=== PATIENT | female | born 1940 | race Caucasian/White ===

== ENCOUNTER → 2016-05-12 14:51 | Outpatient (CLI) | payer MEDICARE ==
[2015-08-02 13:22] VITALS: BMI 31.9
[~2016-05-12 14:51] MED LIST: AMBIEN10 MG PO; ATIVAN0.5 MG PO; BAYER CHEWABLE81 MG PO; BENADRYL25 MG PO; CELEXA40 MG PO; COLACE100 MG PO; FLOMAX0.4 MG PO; GLUCOPHAGE1000 MG PO; HUMALOG 30100 UNITS/ SC; HYDROCODON-ACE1 EAC7 PO; LANTUS INSULIN10 ML SC; LOVENOX40 MG/0.4 SC; NAPROSYN500 MG PO; NAPROXEN250 MG PO; NORCO 7.5/325 T1 TA1 PO; ROBAXIN-750750 MG PO; TENORMIN50 MG PO; VITAMIN B-1000 MCG/M IM; ZESTRIL40 MG PO; ZOFRAN4 MG PO
== END | disposition home or self-care (01) ==
LOC: D.CT 14:51
DX: M48.06 Spinal stenosis, lumbar region (principal); M51.36 Other intervertebral disc degeneration, lumbar region

== ENCOUNTER 2016-06-07 05:14 | Inpatient (IN) | payer MEDICARE ==
[2016-06-05 16:19] LABS: BASOPHILS 0.2 % (0.0-2.0); EOSINOPHILS 2.5 % (0-7); HEMATOCRIT 34.9 % (36.0-48.0); HEMOGLOBIN 11.4 g/dL (12-16); IMMATURE GRANULOCYTES 0.2 % (0-5); LYMPHOCYTES 28.7 % (15-50); MCH 31.8 pg (26.0-34.0); MCHC 32.7 g/dL (31.0-37.0); MCV 97.5 fL (80.0-100.0); MEAN PLATELET VOLUME 9.9 fL (7.4-10.4); MONOCYTES 6.2 % (2-11); NEUTROPHILS 62.2 % (40-80); RBC 3.58 10x6/uL (4.00-5.40); RDW 12.8 % (11.5-14.5); WBC 8.1 10x3/uL (4.8-10.8)
[2016-06-05 16:30] LABS: PLATELET COUNT 342 10x3/uL (130-400)
[2016-06-05 16:37] LABS: ANION GAP 11.9 mmol/L (8-16); CALCIUM 9.3 mg/dL (8.5-10.1); CREATININE - SERUM 1.1 mg/dL (0.6-1.3); POTASSIUM - SERUM 4.9 mmol/L (3.5-5.1)
[2016-06-05 16:50] LABS: INR 1.01 (0.85-1.17); PROTIME 13.1 SECONDS (11.6-15.0)
[2016-06-05 17:17] LABS: APPEARANCE CLEAR (CLEAR); BILIRUBIN NEGATIVE (NEGATIVE); COLOR STRAW (YELLOW); GLUCOSE NEGATIVE (NEGATIVE); KETONE NEGATIVE (NEGATIVE); NITRITE NEGATIVE (NEGATIVE); PROTEIN NEGATIVE (NEGATIVE); UROBILINOGEN NORMAL (NORMAL)
[2016-06-05 17:18] LABS: BACTERIA MODERATE /hpf (NONE SEEN); EPITHELIAL CELLS 0-5 /hpf (0-5); LEUKOCYTE ESTERASE 1+ (NEGATIVE); RED CELLS - URINE OCC /hpf (0-5)
[2016-06-07] VITALS (9 sets, daily range): BP systolic 132–170; BP diastolic 56–94; Ht 160 cm; Wt 75.0 kg
[~2016-06-07] VITALS: Ht 160 cm; Wt 75.0 kg
[~2016-06-07 05:14] MED LIST changes: -BENADRYL25 MG PO; -COLACE100 MG PO; -FLOMAX0.4 MG PO; -HUMALOG 30100 UNITS/ SC; -LOVENOX40 MG/0.4 SC; -NAPROXEN250 MG PO; -NORCO 7.5/325 T1 TA1 PO; -ROBAXIN-750750 MG PO; -ZOFRAN4 MG PO
[2016-06-07] MEDS ORDERED: BENADRYL25 MG PO (05:49)
[2016-06-07] MEDS ORDERED: NORCO 7.5/325 T1 TA1 PO (05:50)
[2016-06-07] MEDS ORDERED: NAPROXEN250 MG PO (05:54)
[2016-06-07] MEDS ORDERED: COLACE100 MG PO (06:21)
--- NOTE | 2016-06-07 06:37 | NUR ---
0605 CALLED MARCUS YANG ABOUT UA RESULTS, NO NEW ORDERS NOTED
--- NOTE | 2016-06-07 08:29 | NUR ---
PILLOWS UNDER PTS LOWER LEGS AND FEET
--- NOTE | 2016-06-07 11:50 | HP ---
PATIENT: JOSE PLATA MEDICAL RECORD: [id number] ACCOUNT: [id number] LOCATION:[facility]- : 39 ADMISSION DATE: 06/07/16 HISTORY AND PHYSICAL EXAMINATION CHIEF COMPLAINT: Back pain. HISTORY OF PRESENT ILLNESS: This is a pleasant 75-year-old white female who presented to our office with low back pain, radicular into her right hip. She rates her pain 7/10. Most of the time, she described as sharp. She has pain with walking. It is better slightly after LESI, but still requires an assistive device for ambulation. She sustained a fall last week after her MRI and CT, so a repeat CT is being done today prior to surgery. PAST MEDICAL HISTORY: Significant for diabetes and high blood pressure. PAST SURGICAL HISTORY: A total hysterectomy 1979, gastric stapling 1985, left shoulder arthroscopy, rotator cuff repair in 1985 and a right shoulder surgery. FAMILY HISTORY: Significant for her dad dying at the age of 90 from COPD complications. Her mom at the age of 90 with respiratory failure. SOCIAL HISTORY: She is . She denies any alcohol or tobacco use. FAMILY DOCTOR: Dr. Louise Lange, Dr. Rowan, her orthopedic surgeon. MRI was at [place]. ALLERGIES: None. CURRENT MEDICATIONS: Atenolol, Ativan, lisinopril, Lantus insulin, Ambien, aspirin, and again allergies are none. REVIEW OF SYSTEMS: She denies any recent chest pain, shortness of breath or weight changes. PHYSICAL EXAMINATION: HEENT: She is normocephalic. Pupils are equal, reactive to light. CHEST: Clear bilaterally, left auscultation. HEART: S1 and S2. ABDOMEN: Soft. EXTREMITIES: Her right biceps femoris strength is 4/5. Walks with a cane with slight limp, decreased range of motion of back. 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 PLAN: L2 through 4 XLIF and that is L2-3, L3-4 XLIF. The risk and benefits of surgery have been explained to her in detail. Risks include bleeding, failure to relieve symptoms, problems with anesthesia and . Time was allowed for questions, questions were answered. The patient wishes to proceed with surgery. TRANSINT:[id number] Voice Confirmation ID: [id number] DOCUMENT ID: [id number] HISTORY AND PHYSICAL [id number] JOSE PLATA Dictated By: MARCUS YANG I have interviewed/examined the above patient and agree with these documented findings. JONES JULIAN MD at 1150 CC: [id number] DICTATION DATE: 06/05/16 1632 COMSEC MANAGER: 06/05/[id number] ADM IN [place] [id number] [place] [id number]
--- NOTE | 2016-06-07 13:45 | NUR ---
PATIENT IN BED WITH IV INTACT. NO COMPLAINTS. DRAIN INTACT. INCISION TO BACK CDI. VS STABLE. FAMILY AT BEDSIDE. CALL LIGHT WITHIN REACH.
--- NOTE | 2016-06-07 15:36 | OP ---
PATIENT NAME: EWA PLATA MEDICAL RECORD: [id number] :38 LOCATION:[id number] ADMISSION DATE:06/07/16 SURGEON: JONES JULIAN MD DATE OF OPERATION: 06/07/2016 PREOPERATIVE DIAGNOSIS: Right L3, L4 radiculopathy. POSTOPERATIVE DIAGNOSIS: Right L3, L4 radiculopathy. PROCEDURES PERFORMED: 1. Application of intervertebral biomechanical device via posterior interbody approach with NuVasive MAS PLIF interbodies at L2-L3, L3-L4. 2. Posterior interbody arthrodesis at L2-L3, L3-L4 3. Posterior segmental instrumentation in the form of cortical screw fixation at L2, L3 and L4 bilaterally. 4. Posterolateral arthrodesis at left L2-L3, L3-L4 facet joints. 5. Wide laminectomy with medial facetectomy on the right side at L2, L3. 6. Repair of intraoperative durotomy. ESTIMATED BLOOD LOSS: 300 mL. SPECIMENS: None. FINDINGS: Durotomy noted underneath the L4 laminotomy closed primarily; no EMG response at greater than 40 milliamps at any of the screws after screw placement, COMPLICATIONS: None apparent. HISTORY OF PRESENT ILLNESS: Ms. Ewa Plata is a pleasant 75-year-old female, who presented with intractable severe left lower extremity and right lower extremity pain. She suffered a fall approximately a week before surgery and noticed the onset of left groin pain. Her longer standing pain is proximal posterolateral right-sided pain in the L3 and L4 nerve root distributions. Imaging was consistent with a foraminal stenosis at these levels and a bulging disc as well as severe degenerative disc disease with modic changes. I had an extensive discussion with her at multiple visits preoperatively regarding her presentation, history, imaging findings, neurologic exam and the risks, benefits and options for continued conservative therapy versus operative intervention in the form of either posterior or combined posterior and lateral approach. She ultimately chose undergo operative intervention and on the morning of surgery, I did finalize the plan for posterior only approach as described here. I discussed with her directly preoperatively and she understood and agreed and consent was modified to reflect this. Again, all risks and benefits of procedure were discussed with her preoperatively and her questions were answered. DESCRIPTION OF PROCEDURE: Ms. Plata was identified by anesthesia team transferred to operative theater where general endotracheal anesthesia commenced and all appropriate lines and tubes were placed. She was gently transferred over in the prone position on the operative table. All pressure points were padded. Arms were placed in superman position. Chest was placed on chest bolsters and eyes were accounted for by anesthesia team. Lumbar region was prepped and draped in usual sterile fashion. A timeout was performed and agreed OPERATIVE REPORT [id number] EWA PLATA to by those present. The patient did receive IV Ancef and 10 mg IV dexamethasone during the procedure. Ancef was given preoperatively and dexamethasone was given approximately long-term through the procedure. Using AP fluoroscopy, the midline incision was marked and infiltrated with 1% lidocaine with epinephrine. A #10 blade was used to make the skin incision and using Bovie electrocautery, standard midline posterior approach was undertaken and relevant anatomy at L2, L3 and superior part of L4 were exposed and identified. Self-retaining retractors were laid into place. The entry points for cortical screws at L2, L3 and L4 bilaterally were identified and drilled under initially AP fluoroscopy and then with the drill guide set at 35 mm. Under lateral fluoroscopy, the tracts were deepened. There was subsequently tapped with 5.0 mm tap. The screws were placed with continuous EMG neuro stimulation and no nerve root responses occurred at greater than 40 milliamps of stimulation. Screws placed were 5.5 x 40 mm screws at L2, 5.0 x 40 mm screws at L3 and L4 bilaterally. Using combination of osteotomes, Kerrison rongeurs, high speed matchstick drill and pituitaries, the L2 and L3 wide laminectomies and right medial facetectomies were performed. The ligamentum flavum was resected and the decompression was carried out of the L2, L3 and L4 nerve roots. The thecal sac was retracted over the L2-L3 disc space and bipolar electrocautery was judiciously used to control epidural bleeding. A square cut was made in the disc with a 15 blade and pituitary rongeurs were used for initial discectomy. Using a combination of kay, pituitary rongeurs, the discectomy was carried out. An 8 mm x 28 mm MAS PLIF interbody size was found to be appropriate on the trial and MAS PLIF interbody device was inserted without difficulty. This occurred after the autograft, which had been harvested from the laminectomy and cleaned of soft tissue and morcellized with the automated bone mill was implanted in the disc space with a bone funnel. The cage was also packed with autograft. The endplates were prepared for arthrodesis with ring curettes and endplate raspers prior to placement of the interbody cage. The process was repeated at L3-L4 with the endplate again prepared in the same manner with ring curette and the rasper. The same sized cage, which was a MAS PLIF interbody cage was placed at L3-L4. After cage placement, it was noted that durotomy had formed slightly inferior to the disc space in the dorsal aspect of the thecal sac. Copious amount of irrigation was used throughout the field. Approximately 1500 mL of irrigation was used throughout the procedure. The laminectomy was extended inferiorly enough to expose the underlying durotomy. Using 4-0 Nurolon sutures, the durotomy was closed primarily and 3 separate Valsalva maneuvers up to 40 cm of water pressure were tested and no leakage was identified. The left L2-L3 and left L3-L4 facet joints were drilled away with a matchstick drill and curetted free of soft tissue with curettes and then packed with autograft. The screw heads were placed on the screws and the 80 mm rods were laid into place and final tightened without incident with set screws. Final AP and lateral x-ray confirmed appropriate position of the implants. A small piece of muscle measuring approximately 1 cm x 1 cm was cut away and laid over the durotomy site. The skin incision was extended rostrally and caudally approximately 1 cm in each direction for better exposure of the fascial plane. A 10-Syrian round drain was tunneled away superiorly in a subfascial manner away from the incision and laid into place in the epidural space. Using interrupted 0 Vicryl sutures, the fascia was closed in a watertight fashion and probed multiple times to ensure no defects. Prior to closure of the fascia, approximately half a gram of vancomycin powder was sprinkled in the subfascial space. The other half gram was sprinkled in the suprafascial space and subdermal layer was closed with inverted interrupted 2-0 Vicryl sutures and the skin was closed with joel. The drain was sutured into place with Vicryl sutures and connected ____ bag to drain to gravity. Sponge and needle counts were correct times 2 at the end the OPERATIVE REPORT [id number] EWA PLATA case. There were no apparent complications. I discussed with the family regarding the course of procedure immediately afterwards and answered all their questions. TRANSINT:[id number] Voice Confirmation ID: [id number] DOCUMENT ID: [id number] JONES JULIAN MD at 1536 CC: [id number] DICTATION DATE: 06/07/16 1213 MUSIC ADAPTER: 06/07/16 1512 ADM IN [place] [id number] [place] [address]
--- NOTE | 2016-06-07 18:30 | NUR ---
PATIENT BP INCREASING WELL HR. 130 AND 190/99. GAVE PATIENT ATENOLOL AND PAGED DR. FULLER.
--- NOTE | 2016-06-07 19:13 | NUR ---
PAGED DR. FULLER FOR PATIENT BP AND HR TRENDING UP TO 190'S/ 90 AND 130'S GAVE PATIENT HER ATENOLOL. NEW ORDERS RECIEVED AND CARRIED OUT.
--- NOTE | 2016-06-07 20:03 | NUR ---
PATIENT RESTING IN BED WITH X-RAY TECHS AT BEDSIDE. PATIENT DENIES NEEDS AT THIS TIME. BED IN LOWEST POSITION, CALL LIGHT WITHIN REACH, AND BED ALARM ON. ENCOURAGED PATIENT TO CALL IF SHE HAS NEEDS.
--- NOTE | 2016-06-07 22:23 | NUR ---
ADMINISTERED APRESOLINE FOR BP 196/103.
--- NOTE | 2016-06-07 23:44 | NUR ---
ADMINISTERED APRESOLINE FOR BP 164/93
[2016-06-08] VITALS: BP 166/81
[2016-06-08 03:00] VITALS: BP 141/70
[2016-06-08 05:36] LABS: BASOPHILS 0.1 % (0.0-2.0); EOSINOPHILS 0 % (0-7); HEMATOCRIT 27.9 % (36.0-48.0); HEMOGLOBIN 8.8 g/dL (12-16); IMMATURE GRANULOCYTES 0.4 % (0-5); LYMPHOCYTES 6.7 % (15-50); MCH 30.9 pg (26.0-34.0); MCHC 31.5 g/dL (31.0-37.0); MCV 97.9 fL (80.0-100.0); MEAN PLATELET VOLUME 10.2 fL (7.4-10.4); MONOCYTES 7.1 % (2-11); NEUTROPHILS 85.7 % (40-80); PLATELET COUNT 347 10x3/uL (130-400); RBC 2.85 10x6/uL (4.00-5.40); RDW 12.7 % (11.5-14.5); WBC 13.6 10x3/uL (4.8-10.8)
--- NOTE | 2016-06-08 07:15 | NUR ---
PATIENT RECEIVED ALERT IN BED. RESPIRATIONS EVEN AND UNLABORED. FAMILY AT BEDSIDE. DENIES NEEDS. SIDE RAILS UP X2. BED IN LOW POSITION. CALL LIGHT AND EXTERMINATION SUPERVISOR BUTTON IN REACH.
[2016-06-08 07:46] VITALS: BP 126/59
--- NOTE | 2016-06-08 08:18 | NUR ---
PATIENT ALERT IN BED EATING BREAKFAST. TOLERATING WELL. SCHEDULED MEDICATION ADMINISTERED. SIDE RAILS UP X2. BED IN LOW POSITION. CALL LIGHT AND RAWHIDE BONE ROLLER BUTTON IN REACH.
[2016-06-08 09:42] LABS: APPEARANCE CLEAR (CLEAR); COLOR YELLOW (YELLOW)
[2016-06-08 09:43] LABS: BACTERIA FEW /hpf (NONE SEEN); BILIRUBIN NEGATIVE (NEGATIVE); EPITHELIAL CELLS OCC /hpf (0-5); GLUCOSE 1000 mg/dL (NEGATIVE); KETONE NEGATIVE (NEGATIVE); LEUKOCYTE ESTERASE TRACE (NEGATIVE); MUCUS >1+ /lpf (NONE SEEN); NITRITE NEGATIVE (NEGATIVE); PROTEIN TRACE mg/dL (NEGATIVE); RED CELLS - URINE 0-5 /hpf (0-5); UROBILINOGEN NORMAL (NORMAL); WHITE CELLS - URINE 0-5 /hpf (0-5)
--- NOTE | 2016-06-08 11:35 | NUR ---
SITTING UP IN CHAIR AT BEDSIDE. RESTING QUIETLY WITH EYES CLOSED. RESPIRATIONS EVEN AND UNLABORED. WAKES EASY WHEN SPOKE TO, BUT IMMEDIATELY DRIFTS BACK TO SLEEP. FAMILY AT BEDSIDE. ACCU CHECK 218. INSULIN PER SLIDING SCALE. CALL LIGHT IN REACH.
[2016-06-08 12:12] VITALS: BP 146/63
--- NOTE | 2016-06-08 12:55 | NUR ---
PATIENT SITTING UP IN CHAIR AT BEDSIDE. PT AND FAMILY PRESENT. CALL LIGHT IN REACH.
--- NOTE | 2016-06-08 13:50 | NUR ---
[facility] CARE PROVIDED. [facility] CATH D/C WITH TIP INTACT. APPROXIMATELY 450CC URINE REMAINED IN COLLECTION BAG. WELL TOLERATED. WILL CONTINUE TO MONITOR OUTPUT.
--- NOTE | 2016-06-08 14:56 | NUR ---
Patient Name: JOSE PLATA Admission Status: Elective Accout number: [id number] Admission Date: 06-07-2016 : 1940 Admission Diagnosis: Attending: BRUNO Current LOS: 1 Anticipated DC Date: 06-12-2016 Planned Disposition: Inpatient Rehab Primary Insurance: MEDICARE A & B Discharge Planning Comments: CM MET WITH PATIENT AND DAUGHTER (JOE) REGARDING D/C NEEDS AND PLANS. PATIENT LIVES ALONE AND DAUGHTER WILL DRIVE HER AT DISCHARGE. PATIENT HAS A RAMP TO ENTER HOME AND NO STAIRS INSIDE. PATIENT HAS HELP WITH HER SHOWER, DRESSING, MEDS, AND HAS A GLUCOMETER BUT DOES NOT CHECK BLOOD SUGAR OFTEN. PATIENTS PCP IS DR. RASMUSSEN AND PHARMACY IS [facility]. PATIENT HAS NOT HAD HOME HEALTH AND WOULD LIKE TO HAVE IP REHAB. CM WILL CONTINUE TO FOLLOW PATIENT WITH D/C NEEDS AND PLANS. PCP DR. RASMUSSEN [facility]- [phone] JOE (DAUGHTER) [phone] E D Tech: Tanvi Schmid Is the patient Alert and Oriented? Yes 0 * How many steps to enter\exit or inside your home? RAMP 0 * PCP DR. RASMUSSEN 0 * Pharmacy [facility] 0 * Preadmission Environment Home Alone 0 * ADLs Partial Dependent 0 * Partial ADLs (Assistance needed) Bathing Dressing Medication Management Toileting Transfers 0 * Equipment Cane Elevated Toliet Seat Glucometer Walker Wheelchair 0 * Other Equipment SHOWER BENCH W/BARS 0 * List name and contact numbers for known caregivers / representatives who currently or will assist patient after discharge: JOE (DAUGHTER) [phone] 0 * Community resources currently utilized None 0 * Additional services required to return to the preadmission environment? Yes 0 * Can the patient safely return to the preadmission environment? Yes 0 * Has this patient been hospitalized within the prior 30 days at any hospital? No 0 Grand Total: 0
--- NOTE | 2016-06-08 16:12 | NUR ---
Rehab Prescreening Consult recieved and the patient was visited. The patient was sleeping, but her daughter was at the bedside. She meets criteria for inpatient rehab and has agreed to participate in the program. She will be accepted when the physician feels she is medically stable for discharge to rehab. The [facility] has been made aware. Nkechi Friend RN Clinical Liaison, Rehab
[2016-06-08 16:29] VITALS: BP 111/52
--- NOTE | 2016-06-08 17:40 | NUR ---
ALERT IN BED EATING DINNER WITH ASSIST FROM DAUGHTER. TOLERATING WELL. SCHEDULED MEDICATION ADMINISTERED. ACCU CHECK 196. INSULIN PER SLIDING SCALE. SIDE RAILS UP X2. BED IN LOW POSITION. CALL LIGHT IN REACH.
--- NOTE | 2016-06-08 19:30 | NUR ---
RESTING WITH EYES CLOSED, EASILY AROUSED, ASSESSMENT COMPLETED, NO ACUTE DISTRESS NOTED, DENIES NEEDS, FALL PRECAUTIONS IN PLACE, CL IN REACH, WILL MONITOR
[2016-06-08 20:00] VITALS: BP 106/50
--- NOTE | 2016-06-08 21:19 | NUR ---
MEDS GIVEN PER MAR, JORDYN WELL, DIABETIC SNACK PROVIDED, DENIES FURTHER NEEDS, FALL PRECAUTIONS IN PLACE, DTR AT BEDSIDE, CL IN REACH
[2016-06-09] VITALS (19 sets, daily range): BP systolic 92–156; BP diastolic 44–73
--- NOTE | 2016-06-09 00:03 | NUR ---
6 UNITS INSULIN GIVEN PER SLIDING SCALE FOR BS OF 294
--- NOTE | 2016-06-09 01:00 | NUR ---
PT UNABLE TO VOID, DENIES PRESSURE OR DISCOMFORT, IN AND OUT CATH DONE WITH 300CC CLEAR YELLOW URINE OBTAINED USING CONTRACT TECHNICAL WRITER, JORDYN WELL, DTR IN ROOM, CL IN REACH
--- NOTE | 2016-06-09 05:48 | NUR ---
4 UNITS INSULIN GIVEN PER SLIDING SCALE FOR BS OF 233 ALONG WITH ZOFRAN FOR C/O NAUSEA, JORDYN WELL, DTR IN ROOM, CL IN REACH
[2016-06-09 06:15] LABS: BASOPHILS 0.1 % (0.0-2.0); EOSINOPHILS 0.1 % (0-7); HEMATOCRIT 24.2 % (36.0-48.0); HEMOGLOBIN 7.8 g/dL (12-16); IMMATURE GRANULOCYTES 0.3 % (0-5); LYMPHOCYTES 11.6 % (15-50); MCH 31.6 pg (26.0-34.0); MCHC 32.2 g/dL (31.0-37.0); MEAN PLATELET VOLUME 10.3 fL (7.4-10.4); MONOCYTES 7.8 % (2-11); NEUTROPHILS 80.1 % (40-80); PLATELET COUNT 278 10x3/uL (130-400); RBC 2.47 10x6/uL (4.00-5.40); RDW 12.8 % (11.5-14.5); WBC 11.9 10x3/uL (4.8-10.8)
[2016-06-09 06:32] LABS: ANION GAP 14.2 mmol/L (8-16); CALCIUM 8.4 mg/dL (8.5-10.1); CARBON DIOXIDE 25.6 mmol/L (21.0-32.0); CREATININE - SERUM 0.9 mg/dL (0.6-1.3); POTASSIUM - SERUM 3.8 mmol/L (3.5-5.1)
--- NOTE | 2016-06-09 06:50 | NUR ---
PATIENT RECEIVED IN BED ALERT. NO SIGNS OF DISTRESS NOTED. REPOSITIONED FOR COMFORT. SIDE RAILS UP X2. BED IN LOW POSITION. CALL LIGHT IN REACH. FAMILY AT BEDSIDE.
--- NOTE | 2016-06-09 09:12 | NUR ---
PATIENT SITTING UP IN CHAIR AT BEDSIDE. NO SIGNS OF DISTRESS NOTED. SCHEDULED MEDICATION ADMINISTERED. CALL LIGHT IN REACH. FAMILY AT BEDSIDE.
--- NOTE | 2016-06-09 10:20 | NUR ---
[facility] CATH PLACED PER ORDER FOR RETENTION. 500CC CLEAR YELLOW URINE IMMEDIATELY RECEIVED. STERILE TECHNIQUE USED. SECURED TO RIGHT THIGH WITH STAT LOCK. [facility] CARE PROVIDED. WELL TOLERATED. WILL CONTINUE TO MONITOR OUTPUT.
--- NOTE | 2016-06-09 10:39 | NUR ---
PERCOCET ADMINISTERED PER PRN ORDER FOR PAIN. DENIES FURTHER NEEDS. SIDE RAILS UP X2. BED IN LOW POSITION. CALL LIGHT IN REACH.
--- NOTE | 2016-06-09 11:20 | NUR ---
FIRST UNIT PRBC INITIATED PER ORDERS. VITAL SIGNS STABLE. IV TO LEFT HAND PATENT. NO REDNESS OR INFLAMMATION NOTED. FAMILY AT BEDSIDE. WILL CONTINUE TO MONITOR.
--- NOTE | 2016-06-09 13:45 | NUR ---
FIRST UNIT PRBC COMPLETE. WELL TOLERATED. VITAL SIGNS STABLE.
--- NOTE | 2016-06-09 14:50 | NUR ---
SECOND UNIT PRBC INITIATED. VITAL SIGNS STABLE. IV TO LEFT HAND PATENT. NO REDNESS OR INFLAMMATION NOTED. FAMILY PRESENT. SIDE RAILS UP X2. BED IN LOW POSITION. CALL LIGHT IN REACH.
--- NOTE | 2016-06-09 17:45 | NUR ---
PRBC TRANSFUSION COMPLETE. VITAL SIGNS STABLE. SIDE RAILS UP X2. BED IN LOW POSITION. CALL LIGHT IN REACH. FAMILY PRESENT.
--- NOTE | 2016-06-09 19:20 | NUR ---
PT LYING IN BED AWAKE, ASSESSMENT COMPLETED, NO ACUTE DISTRESS NOTED, DSG TO BACK CDI, DRAIN WITH SS LIQUID, MEDINA DRAINING TO GRAVITY, SCD'S AND NC IN PLACE, DENIES NEEDS AT THIS TIME, SR'S UP, CL IN REACH, FAMILY IN ROOM, WILL MONITOR
--- NOTE | 2016-06-09 21:25 | NUR ---
PT TOOK BP MEDS ORDERED, VOMITED AFTERWARDS, WILL MONITOR, WISHES TO WAIT TO SEE IF SHE NEEDS THE AMBIEN, DTR IN ROOM, CL IN REACH
--- NOTE | 2016-06-09 23:35 | NUR ---
4 UNITS INSULIN GIVEN PER SLIDING SCALE FOR BS OF 212 DENIES NEEDS, CL IN REACH, DTR IN ROOM
--- NOTE | 2016-06-10 01:36 | NUR ---
PRN ZOFRAN AND PERCOCET GIVEN FOR C/O PAIN AND NAUSEA, JORDYN WELL, SR'S UP, CL IN REACH, DTR IN ROOM
--- NOTE | 2016-06-10 03:23 | NUR ---
RESTING WITH EYES CLOSED, RESP WITH EASE, NO DISTRESS NOTED, DTR IN ROOM, SR'S UP, CL IN REACH
[2016-06-10 04:00] VITALS: BP 140/65
[2016-06-10 04:55] LABS: BASOPHILS 0.2 % (0-2); EOSINOPHILS 0.2 % (0-7); IMMATURE GRANULOCYTES 0.4 % (0-5); LYMPHOCYTES 9.5 % (15-50); MCHC 33.8 g/dL (31.0-37.0); MEAN PLATELET VOLUME 10.1 fL (7.4-10.4); MONOCYTES 7.7 % (2-11); PLATELET COUNT 251 10x3/uL (130-400); RDW 15.7 % (11.5-14.5)
[2016-06-10 04:58] LABS: HEMATOCRIT 29.6 % (36.0-48.0); MCV 91.6 fL (80.0-100.0); RBC 3.23 10x6/uL (4.00-5.40)
[2016-06-10 05:09] LABS: ANION GAP 10.7 mmol/L (8-16); CALCIUM 8.5 mg/dL (8.5-10.1); CARBON DIOXIDE 29.2 mmol/L (21.0-32.0); CREATININE - SERUM 0.8 mg/dL (0.6-1.3); POTASSIUM - SERUM 3.9 mmol/L (3.5-5.1)
[2016-06-10 08:17] VITALS: BP 166/93
--- NOTE | 2016-06-10 11:00 | NUR ---
PT AOX4 RESP EVEN AND NONLABORED SON AT BEDSIDE IV TO LEFT HAND PATENT AND INTACT BED AT LOWEST SETTING CALL LIGHT WITHIN REACH WILL CONTINUE TO MONITOR
[2016-06-10 11:45] VITALS: BP 142/67
[2016-06-10 15:35] VITALS: BP 134/61
--- NOTE | 2016-06-10 19:40 | NUR ---
ASSESSMENT COMPLETED, NO ACUTE DISTRESS NOTED, MEDINA DRAINING TO GRAVITY, DRAINAGE BAG TO BACK INCISION WITH SS LIQUID, SCD'S AND NC IN PLACE, FALL PRECAUTIONS IN PLACE, CL IN REACH, DTR IN ROOM, WILL MONITOR
[2016-06-10 20:00] VITALS: BP 132/74
--- NOTE | 2016-06-10 21:21 | NUR ---
VALIUM GIVEN PER REQUEST, REFUSED ALL OTHER MEDS EXCEPT LANTUS, CL IN REACH, DTR IN ROOM
--- NOTE | 2016-06-11 | NUR ---
2 UNITS INSULIN GIVEN PER SLIDING SCALE FOR BS OF 184, JORDYN WELL, CL IN REACH
--- NOTE | 2016-06-11 01:26 | NUR ---
RESTING WITH EYES CLOSED, RESP WITH EASE, NO DISTRESS NOTED, SAFETY MEASURES IN PLACE, CL IN REACH, DTR IN ROOM
--- NOTE | 2016-06-11 03:15 | NUR ---
PT INCONT OF BOWEL, SPECIMEN COLLECTED AND TAKEN TO LAB, PT CLEANED AND REPOSITIONED IN BED, JORDYN WELL, CL IN REACH
[2016-06-11 04:00] VITALS: BP 137/82
[2016-06-11 05:01] LABS: ANION GAP 10.6 mmol/L (8-16); CALCIUM 8.4 mg/dL (8.5-10.1); CARBON DIOXIDE 30.1 mmol/L (21.0-32.0); CREATININE - SERUM 0.9 mg/dL (0.6-1.3); POTASSIUM - SERUM 3.7 mmol/L (3.5-5.1)
[2016-06-11 08:55] VITALS: BP 154/74
[2016-06-11 12:48] VITALS: BP 156/67
[2016-06-11 17:35] VITALS: BP 180/72
[2016-06-11 20:00] VITALS: BP 153/87
--- NOTE | 2016-06-12 02:00 | NUR ---
PT IN BED WITH NO DISTRESS. RESPIRATIONS EVEN AND UNLABORED. SIDE RAILS X 2. BED LOW. CALL LIGHT IN REACH.
[2016-06-12 04:00] VITALS: BP 147/68
[2016-06-12 07:49] VITALS: BP 143/83
--- NOTE | 2016-06-12 08:26 | NUR ---
AWAKE ALERT.ORIENTED X3. LUNGS ARE CLEAR BILATERALLY, NO COUGH NOTED. SKIN IS INTACT WITHOUT REDNESS EXCEPT INCISION TO MID BACK WHICH HAS A DRY INTACT DRESSING IN PLACE. BILIARY DRAIN IN PLACE WITH SEROUS SANGUINESS DRAINAGE NOTED. SL TO LEFT HAND PATENT WITHOUT REDNESS AT INSERTION SITE. MEDINA PATENT WITH CLEAR YELLOW URINE.
[2016-06-12 09:09] LABS: BASOPHILS 0.2 % (0-2); EOSINOPHILS 0.6 % (0-7); HEMATOCRIT 35.4 % (36.0-48.0); HEMOGLOBIN 11.6 g/dL (12-16); IMMATURE GRANULOCYTES 0.4 % (0-5); LYMPHOCYTES 16.5 % (15-50); MCH 30.8 pg (26.0-34.0); MCHC 32.8 g/dL (31.0-37.0); MCV 93.9 fL (80.0-100.0); MEAN PLATELET VOLUME 9.9 fL (7.4-10.4); MONOCYTES 9.4 % (2-11); NEUTROPHILS 72.9 % (40-80); PLATELET COUNT 322 10x3/uL (130-400); RBC 3.77 10x6/uL (4.00-5.40); RDW 13.7 % (11.5-14.5); WBC 10.4 10x3/uL (4.8-10.8)
[2016-06-12 09:26] LABS: CALCIUM 8.9 mg/dL (8.5-10.1); CREATININE - SERUM 0.9 mg/dL (0.6-1.3)
[2016-06-12] MEDS ORDERED: ROBAXIN-750750 MG PO (10:14)
[2016-06-12] MEDS ORDERED: LOVENOX40 MG/0.4 SC (10:14)
[2016-06-12] MEDS ORDERED: FLOMAX0.4 MG PO (10:14)
[2016-06-12] MEDS ORDERED: HUMALOG 30100 UNITS/ SC (10:15)
[2016-06-12] MEDS ORDERED: ZOFRAN4 MG PO (10:17)
--- NOTE | 2016-06-12 10:37 | NUR ---
CM REASSESSMENT NOTE: PATIENT IS DISCHARGING TO IP REHAB. FAMILY AWARE
[2016-06-12 11:25] VITALS: BP 186/72
--- NOTE | 2016-06-12 12:00 | NUR ---
MEDINA D/C WITH TIP INTACT WITHOUT DIFFICULTY. DENIES NEEDS. FSBS 179. GIVEN 2 UNITS HUMALOG SUBQ PER SS.
--- NOTE | 2016-06-12 16:27 | NUR ---
REPORT CALLED TO QUIANA CUEVA IN REHAB. PATIENT TRANSFERRED TO ROOM 1108A VIA WC WITHOUT DIFFICULTY. FAMILY AWARE OF TRANSFER.
== END 2016-06-12 15:35 | DRG 460 ==
LOC: D.SDCHOLD 05:14 → D.MS 05:14 → D.SDCHOLD 07:30 → D.MS 12:35
PROVIDERS: ADMIT Neurological Surgery
PROC: 00QT0ZZ Repair Spinal Meninges, Open Approach (ICD-10-PCS; 2016-06-07)
PROC: 0SG1071 Fusion of 2 or more Lumbar Vertebral Joints with Autologous Tissue Substitute, Posterior Approach, Posterior Column, Open Approach (ICD-10-PCS; principal; 2016-06-07 07:30)
DX: M51.16 Intervertebral disc disorders with radiculopathy, lumbar region (principal); G97.41 Accidental puncture or laceration of dura during a procedure

== ENCOUNTER 2016-06-12 15:56 | Inpatient (IN) | payer MEDICARE ==
[~2016-06-12] VITALS: Ht 160 cm; Wt 77.1 kg
[~2016-06-12 15:56] MED LIST changes: +BENADRYL25 MG PO; +COLACE100 MG PO; +FLOMAX0.4 MG PO; +HUMALOG 30100 UNITS/ SC; +LOVENOX40 MG/0.4 SC; +NAPROXEN250 MG PO; +NORCO 7.5/325 T1 TA1 PO; +ROBAXIN-750750 MG PO; +ZOFRAN4 MG PO
[2016-06-12 16:12] VITALS: BP 157/74; BMI 30.1
--- NOTE | 2016-06-12 16:20 | NUR ---
PATIENT ADMITTED. TO REHAB FROM [facility]. DIAG RADICULEPATYHY WITH SEVERE DDD. PATIENT IS ALERT/ORIENT X4. DIET: DIABETIC WITH CHOPPED MEATS. LEFT SIDE OF BACK HAS A DRAIN THAT WILL BE REMOVED TOMORROW BY NEUROLOGIST. LEFT AND HAS A SL. OXYGEN ON AT 1L PER N/C.
--- NOTE | 2016-06-12 17:38 | NUR ---
GLUCOSE LEVEL 134. NO SLIDING SCALE INSUIN GIVEN
--- NOTE | 2016-06-12 17:48 | NUR ---
SITTING UP IN BED EATING SUPPER. DRAIN FROM BACK PRODUCING RED DRAINAGE THAT HAS NO SIDIMENT NOTED. HER PAIN IS CONTROLLED. DENIES NUMBNESS AND TINGLING AT PRESENT TO BLE.
--- NOTE | 2016-06-12 19:45 | NUR ---
PT RESTING IN BED, FAMILY AT BEDSIDE. DENIES NEEDS. BED LOW. CL IN REACH.
[2016-06-12 20:14] VITALS: BP 157/74
--- NOTE | 2016-06-12 21:50 | NUR ---
PT HS MEDS ADMINISTERED. PT HAD N/V AFTER TAKING MEDS. PT REFUSED ZOFRAN. WCTM. BED LOW. CL IN REACH.
--- NOTE | 2016-06-12 23:35 | NUR ---
PT RESTING, EYES CLOSED. BED LOW. CLIN REACH.
--- NOTE | 2016-06-13 01:23 | NUR ---
PT ASSISTED TO USE BEDPAN. PT HAD LARGE BM, SOFT, FORMED. PT FITTED SHEET AND PINK PAD CHANGED. PT DENIES FURHTER NEEDS. BED LOW. CLIN REACH.
--- NOTE | 2016-06-13 04:51 | NUR ---
PT HAD EPISODE OF INCONTINENT BOWEL. PT BM WAS LARGE, SOFT AND FORMED. PT PINK PAD AND BRIEF CHANGED. PT DENIES FURTHER NEEDS. BED LOW. CL IN REACH.
--- NOTE | 2016-06-13 05:45 | NUR ---
PT CALLED FOR BEDPAN. PT HAD MEDIUM BM. PT CHANGED OUT OF GOWN AND INTO SHIRT FOR TODAY. PT DENIES FURTHER NEEDS. BED LOW. CLIN REACH.
[2016-06-13 07:03] LABS: BASOPHILS 0.1 % (0-2); EOSINOPHILS 0.4 % (0-7); HEMATOCRIT 34.2 % (36.0-48.0); HEMOGLOBIN 11.4 g/dL (12-16); IMMATURE GRANULOCYTES 0.4 % (0-5); LYMPHOCYTES 14.3 % (15-50); MCH 30.6 pg (26.0-34.0); MCHC 33.3 g/dL (31.0-37.0); MCV 91.7 fL (80.0-100.0); MEAN PLATELET VOLUME 10.2 fL (7.4-10.4); MONOCYTES 7.7 % (2-11); NEUTROPHILS 77.1 % (40-80); PLATELET COUNT 361 10x3/uL (130-400); RBC 3.73 10x6/uL (4.00-5.40); RDW 13.2 % (11.5-14.5); WBC 10.4 10x3/uL (4.8-10.8)
[2016-06-13 07:06] LABS: ANION GAP 10.6 mmol/L (8-16); CALCIUM 9.1 mg/dL (8.5-10.1); CARBON DIOXIDE 30.1 mmol/L (21.0-32.0); CREATININE - SERUM 0.8 mg/dL (0.6-1.3); POTASSIUM - SERUM 3.7 mmol/L (3.5-5.1)
[2016-06-13 08:17] VITALS: BP 189/73
--- NOTE | 2016-06-13 09:51 | NUR ---
INTRODUCED SELF TO PT, MORNING MEDICATION GIVEN, ASSIST PT WITH BEDPAN, PT TURNED WITH MOD ASSISTANCE, PT TOLERATED WELL, WILL CONTINUE TO MONITOR, CALL LIGHT WITHIN REACH.
--- NOTE | 2016-06-13 10:10 | NUR ---
PT PULLED CEREBRAL LINE OUT, DR OFFICE CALLED, TALKED TO DR JULIAN, STATES WAS GOING TO TAKE OUT LATER TODAY, LINE WAS INTACT, WILL CONTINUE TO MONITOR, CALL LIGHT WITHIN REACH.
--- NOTE | 2016-06-13 10:24 | NUR ---
PT STATES PAIN IN HER LEGS, PAIN MEDICATION GIVEN, WILL CONTINUE TO MONITOR, CALLL LIGHT WITHIN REACH.
[2016-06-13 13:18] VITALS: Ht 160 cm; Wt 77.1 kg
--- NOTE | 2016-06-13 14:26 | NUR ---
PT IN PHYSICAL THERAPY, WILL CONTINUE TO MONITOR.
--- NOTE | 2016-06-13 16:44 | NUR ---
MEDICATION GIVEN, PT TOLERATED WELL. SISTER AT BEDSIDE, PT STATES NO NEW NEEDS AT THIS TIME, WILL CONTINUE TO MONITOR, CALL LIGHT WITHIN REACH..
--- NOTE | 2016-06-13 18:45 | NUR ---
PATIENT UP AT DESK CONVERSING WITH DAY SHIFT STAFF. PATIENT RECEIVED PAIN MEDICATION ABOUT 15 MINUTES AGO. IS WAITING FOR IT TO TAKE AFFECT, FROM WHAT I CAN GATHER.
--- NOTE | 2016-06-13 19:15 | NUR ---
IN BED, AWAKE. FAMILY MEMBER AT BEDSIDE. PATIENT DENIES NEEDS.
[2016-06-13 19:16] VITALS: BP 193/78
--- NOTE | 2016-06-14 02:05 | NUR ---
CONTINUES IN BED, EYES CLOSED. LYING ON LEFT SIDE. APPEARS COMFORTABLE.
--- NOTE | 2016-06-14 04:35 | NUR ---
CLEANSED PATIENT FROM LARGE URINE AND MEDIUM VOLUME BM INCONTINENCES. TURNED TO SUPINE POSITION AFTER CHANGING PATIENT'S BRIEF, PINK PAD, SHEET AND GOWN, APPLYING FRESH SCRUB TOP INSTEAD OF GOWN.
--- NOTE | 2016-06-14 05:35 | NUR ---
FSBS 177. GAVE PATIENT 2 UNITS HUMALOG SLIDING SCALE INSULIN SC IN LEFT UPPER ARM. DENIES DURRENT NEEDS.
[2016-06-14 06:25] LABS: BASOPHILS 0.1 % (0-2); EOSINOPHILS 0.2 % (0-7); HEMATOCRIT 35.5 % (36.0-48.0); HEMOGLOBIN 11.9 g/dL (12-16); IMMATURE GRANULOCYTES 0.4 % (0-5); LYMPHOCYTES 16.2 % (15-50); MCH 30.5 pg (26.0-34.0); MCHC 33.5 g/dL (31.0-37.0); MEAN PLATELET VOLUME 10.1 fL (7.4-10.4); MONOCYTES 8.5 % (2-11); NEUTROPHILS 74.6 % (40-80); PLATELET COUNT 402 10x3/uL (130-400); RDW 13.3 % (11.5-14.5); WBC 9.7 10x3/uL (4.8-10.8)
[2016-06-14 06:42] LABS: ANION GAP 12.3 mmol/L (8-16); CARBON DIOXIDE 28.6 mmol/L (21.0-32.0); CREATININE - SERUM 0.8 mg/dL (0.6-1.3); POTASSIUM - SERUM 3.9 mmol/L (3.5-5.1)
[2016-06-14 08:00] VITALS: BP 156/70
--- NOTE | 2016-06-14 08:02 | NUR ---
DR Dov VIZCAINO INTO SEE PATIENT. NEW ORDERS RECEIVED
--- NOTE | 2016-06-14 10:04 | NUR ---
COLACE HELP. PATIENT HAVING LOOSE STOOLS. CONTINANT OF BLADDER AND BOWEL THIS AM. USED BED ELIAS
--- NOTE | 2016-06-14 11:55 | NUR ---
GLUCOSE LEVEL 197. TWO UNITS OF SLIDING SCALE INSULIN GIVEN
[2016-06-14 13:13] LABS: % SATURATION 20 % (15-55); IRON 43 ug/dl (35-150); TOTAL IRON BIND CAPACITY 206 ug/dl (260-445); UNSAT IRON BIND CAPACITY 163 ug/dl (150-375)
--- NOTE | 2016-06-14 13:43 | NUR ---
CONSULT MAKE WITH DR MILNER. THIS NURSE TALKED WITH EDUARD. FACE SHEET FAXED OVER TO OFFICE
--- NOTE | 2016-06-14 13:44 | NUR ---
CARE TEAM MEETING: FAMILY ATTENDED MEETING. PATIENT PCP IS DR. RASMUSSEN, SHE HAS WALKER, WHEELCHAIR AND RAISED TOILET SEAT AT HOME. DR. MILNER WILL BE CONSULTED FOR CHANGE IN MENTAL STATUS PER DR. VIZCAINO. IRON STUDIES ALSO ORDERED. WILL CONTINUE TO FOLLOW WITH PATIENT UNTIL DISCHARGED
--- NOTE | 2016-06-14 14:19 | NUR ---
SITTING UP IN WC ACTIVE IN THERAPY.
--- NOTE | 2016-06-14 16:49 | NUR ---
GLUCOSE LEVEL 212. FOUR UNITS OF SLIDING SCALE INSULIN GIVEN
--- NOTE | 2016-06-14 19:30 | NUR ---
IN BED, AWAKE. DENIES NEEDS. FAMILY MEMBER VISITING AT BEDSIDE.
[2016-06-14 20:16] VITALS: BP 166/75
--- NOTE | 2016-06-14 21:10 | NUR ---
ASSESSMENT AND HS MEDS COMPLETE. HELD SCHEDULED COLACE FOR LOOSE, INCONTINENT BM'S YESTERDAY AND TODAY. ALSO HELD SCHEDULED AMBIEN PER DAUGHTER'S REQUEST. SHE THINKS IT MAY BE CONTRIBUTING TO PATIENT CONFUSION. GAVE PATIENT NORCO 5/325 X1 TAB PO FOR PAIN LEVEL OF 4/10 IN LUMBAR INCISION AND RIGHT HIP.
--- NOTE | 2016-06-14 21:40 | NUR ---
PATIENT'S DAUGHTER ASKED THAT WE ASSIST PATIENT UP TO BR COMMODE. PATIENT UNABLE TO PROCESS AND SEQUENCE ACTIONS WITH COAXING FROM DAUGHTER AND SOFT DRINK POWDER MIXER. WENT BACK TO ROOM TO ASSIST. AND FOUND THAT PATIENT WAS NOT FOLLOWING COMMANDS AT ALL AND REQUIRING TOTAL ASSIST TO SIMPLY TRANSFER TO THE W/C AND COMMODE. PROCESSING VERY POORLY TONIGHT AND EVEN MILDLY RESISTIVE OF SOFT DRINK POWDER MIXER AND DAUGHTER'S EFFORTS TO TRANSFER HER.
--- NOTE | 2016-06-14 22:30 | NUR ---
RESTING IN BED, EYES CLOSED. LYING ON RIGHT SIDE. SCD'S IN PLACE AND OPERATING PROPERLY. APPEASRS COMFORTABLE. DAUGHTER HAS DEPARTED FOR THE NIGHT.
--- NOTE | 2016-06-14 23:50 | NUR ---
CONTINUES IN BED ON RIGHT SIDE. NO DISTRESS NOTED.
--- NOTE | 2016-06-15 02:35 | NUR ---
PATIENT STATED NEED TO TOILET. FOUND HER INCONTINENT OF LARGE AMOUNT OF URINE AND SMALL VOLUME LOOSE BM. GAVE HER OPPORTUNITY ON BEDPAN BUT COULD NOT TOILET FURTHER. CLEANSED PATIENT AND CHANGED HER PINK BED PAD AND HER PULL-UP BRIEF. REPOSITIONED HER TO LEFT SIDELYING POSITION.
--- NOTE | 2016-06-15 04:30 | NUR ---
RESTING IN BED, RESPIRING QUIETLY.
--- NOTE | 2016-06-15 05:20 | NUR ---
PATIENT URINATED 300 CLEAR YELLOW URINE IN FRACTURE ELIAS. HOWEVER SHE ALSO SHIFTED WHILE ON BEDPAN AND URINATED A BIT ON PINKE BEDPAD REQUIRING CHANGE. CLEANSED PATIENT AND CHANGED HER BREIF AND PINK PAD. TURNED HER TO RIGHT SIDELYING POSITION.
--- NOTE | 2016-06-15 07:30 | NUR ---
SLEEPING.CL IN REACH.NO DISTRESS.
[2016-06-15 07:44] LABS: BASOPHILS 0.1 % (0-2); EOSINOPHILS 0.6 % (0-7); HEMATOCRIT 34.4 % (36.0-48.0); HEMOGLOBIN 11.7 g/dL (12-16); IMMATURE GRANULOCYTES 0.9 % (0-5); LYMPHOCYTES 21.9 % (15-50); MCH 30.9 pg (26.0-34.0); MCV 90.8 fL (80.0-100.0); MEAN PLATELET VOLUME 9.7 fL (7.4-10.4); MONOCYTES 10.5 % (2-11); PLATELET COUNT 404 10x3/uL (130-400); RBC 3.79 10x6/uL (4.00-5.40); RDW 13.1 % (11.5-14.5); WBC 8.9 10x3/uL (4.8-10.8)
[2016-06-15 07:58] LABS: ALBUMIN 2.7 g/dL (3.4-5.0); ANION GAP 10.6 mmol/L (8-16); BILIRUBIN - TOTAL 0.34 mg/dL (0.2-1.3); CALCIUM 8.5 mg/dL (8.5-10.1); CARBON DIOXIDE 29.1 mmol/L (21.0-32.0); CREATININE - SERUM 0.8 mg/dL (0.6-1.3); POTASSIUM - SERUM 3.7 mmol/L (3.5-5.1); PROTEIN - SERUM 5.9 g/dL (6.4-8.2)
[2016-06-15 09:17] LABS: FOLATE (FOLIC ACID) - SERUM 8.4 ng/mL (>3.0)
--- NOTE | 2016-06-15 12:14 | NUR ---
PT RESTING IN BED WITH EYES OPEN CALL LIGHT IN REACH WILL MONITER
--- NOTE | 2016-06-15 18:11 | NUR ---
PT RESTING IN BED WITH EYES OPEN CALL LIGHT IN REACH WILL MONITER
[2016-06-15 18:54] VITALS: BP 159/66
--- NOTE | 2016-06-15 19:10 | NUR ---
IN BED, DAUGHTER AT BEDSIDE.
--- NOTE | 2016-06-15 19:50 | NUR ---
ASSISTED PATIENT WITH BEDPAN AFTER MODERATE URINARY INCONTINENCE IN BRIEF. WAS UNABLE TO URINATE FURTHER. REMOVED BEDPAN AND ASSISTED HER TO DON A FRESH PULL-UP. DAUGHTER ASSISTED ME TO REPOSITION PATIENT UP IN BED AND TURN HER TO RIGHT SIDELYING POSITION.
--- NOTE | 2016-06-15 21:35 | NUR ---
JUST CHANGED PATIENT AFTER URINE INCONTINENCE. RECEIVED ASSIST FROM PATIENT'S DAUGHTER TO CHANGE HER AND REPOSITION HER UP IN BED AND SUBSEQUENTLY TO LEFT SIDELYING POSITION AFTER ASSESSMENT AND HS MEDS. FSBS 179. GAVE PATIENT 2 UNITS HUMALOG INSULIN IN RIGHT UPPER ARM. PATIENT C/O PAIN LEVEL OF 3/10 IN HER BACK AND RIGHT HIP. GAVE HER NORCO 7.5/325 X1 TAB PO FOR HER PAIN. PATIENT IS ALERT AND ORIENTED X4, HOWEVER SHE IS PROCESSING SLOWLY WHEN ASKED A QUESTION.
--- NOTE | 2016-06-15 22:05 | NUR ---
RESTING QUIETLY IN BED ON LEFT SIDE, HOB UP 10 DEGREES.
--- NOTE | 2016-06-16 | NUR ---
CLEANSED AND CHANGED PATIENT FROM SMALL TO MODERATED URINE INCONTINENCE IN BEIRF. REPOSITIONED HER IN BED TO RIGHT SIDELYING POSITION. APPLIED BUTT PASTE TO REDDENED AREA OVER COCCYX.
--- NOTE | 2016-06-16 01:45 | NUR ---
RESTING QUIETLY ON RIGHT SIDE. NO DISTRESS NOTED.
--- NOTE | 2016-06-16 04:50 | NUR ---
CLEANSED AND CHANGED PATIENT AFTER VERY LARGE URINE INCONTINENCE. REQUIRED CHANGE OF PULL-UP, PINK PAD, A PILLOWCASE FROM THE PILLOW BETWEEN HER LEGS, AND HER GOWN, ALL OF WHICH WERE SATURATED. APPLIED HER OWN LONG SLEEVE TOP. LEFT THE ROOM FOR 5 MINUTES AND SHE CALLED ME BACK REQUESTING TO BE CHANGED AGAIN SHE HAD URINATED AN ADDITIONAL MODERATE AMOUNT IN HER NEW BRIEF. AGAIN CLEANSED PATIENT AND CHANGED HER PULL-UP BRIEF. REPOSITIONED HER ONTO HER LEFT SIDE.
--- NOTE | 2016-06-16 07:00 | NUR ---
PT WAS RECEIVED IN BED AWAKE AND ORIENTED ONLY TO SELF AT THE BEGINNING OF THIS SHIFT. HER DAUGHTER WAS AT HER BEDSIDE. PT. IS A MAX ASSIST IN AND OUT OF THE BED AND WHEELCHAIR. VITAL SIGNS; TEMP. 97.6, PULSE 63, RESP. 14, B/P 142/63, 02SAT. 99%. NO VOICED COMPLAINTS OR SIGNS OF DISCOMFORT OR DISTRESS. WILL BE MONITORING HER AND ASSISTING PRN WITH ADL'S.
[2016-06-16 07:19] LABS: BASOPHILS 0.2 % (0-2); EOSINOPHILS 1.1 % (0-7); HEMATOCRIT 34.8 % (36.0-48.0); HEMOGLOBIN 11.8 g/dL (12-16); IMMATURE GRANULOCYTES 0.6 % (0-5); LYMPHOCYTES 29.6 % (15-50); MCH 30.9 pg (26.0-34.0); MCHC 33.9 g/dL (31.0-37.0); MCV 91.1 fL (80.0-100.0); MONOCYTES 11.1 % (2-11); NEUTROPHILS 57.4 % (40-80); PLATELET COUNT 438 10x3/uL (130-400); RBC 3.82 10x6/uL (4.00-5.40); RDW 13.2 % (11.5-14.5); WBC 8.3 10x3/uL (4.8-10.8)
[2016-06-16 07:30] LABS: CALC OSMOLALITY 259 mosm/kg (275-300); CALCIUM 8.6 mg/dL (8.5-10.1); CHLORIDE - SERUM 92 mmol/L (98-107); CREATININE - SERUM 0.7 mg/dL (0.6-1.3); GLUCOSE 118 mg/dL (74-106); POTASSIUM - SERUM 3.6 mmol/L (3.5-5.1); SODIUM 129 mmol/L (136-145); UREA NITROGEN 12 mg/dL (7-18); eGFR NON AFRICAN AMERICAN 86 mL/min (90-120)
--- NOTE | 2016-06-16 08:59 | RHP ---
PATIENT: JOSE PLATA MEDICAL RECORD: [id number] ACCOUNT: [id number] LOCATION:[facility] [address] : 39 ADMISSION DATE: 06/12/16 REHABILITATION HISTORY AND PHYSICAL EXAMINATION POST ADMISSION PHYSICIAN EXAMINATION Post-Admission Physical Examination and History and Physical DATE OF ADMISSION TO THE REHAB: 06/12/2016 ADMITTING DIAGNOSES: Right L2 through L4 foraminal stenosis, radiculopathy and central cord stenosis with severe degenerative disc disease, acute blood loss anemia, and postop urinary retention. HISTORY OF PRESENT ILLNESS: The patient is a 75-year-old female patient admitted to rehab, status post L2 through L4 PLIF with cortical screw fixation repair of durotomy. She presented with intractable severe left lower extremity and right lower extremity pain. She suffered a fall approximately a week before surgery and noticed the onset of groin pain. The longer that she stood, the more pain she had, especially on the right side on the L3 and L4 root distribution. Imaging was consistent foraminal stenosis at these levels and a bulging discs as well as severe degenerative disc disease with Modic changes. She has had pain with walking. It is slightly better after the LESI, but still required an assistive device for ambulation. Her right biceps femoris strength was 4/5. She walked with a cane with a slight limp. She had decreased range of motion of her back. Postop, she developed acute blood loss anemia with an H&H was 7.8 and 24.2. She received 2 units packed red blood cells. She was unable to void after the [place]ina was discharged. She had been in and out catheterization. Her fingerstick blood sugars will also running from 138 to 334. She has a low-resistant sliding scale. Prior to admit, she was moderately independent with a cane for mobility and ADLs. Her function was limited by intractable pain. Currently, she is moderate to max assist. She is getting fingerstick blood sugars q.a.c. and q.h.s. and has a sliding scale insulin. She needs daily CBCs, O2 titration, and pain control. She lives alone and she has had multiple falls prior to surgery. I want to make sure that she gets home safely and does not fall, status post surgery to her back. She definitely requires inpatient rehab to get to that level. COMORBIDITIES: Include intractable back pain, lower extremity weakness, decreased range of motion, abnormal gait, hyponatremia, scoliosis, anemia, and urinary retention. She has got neuropathy in both feet and arthritis. She has got a heart murmur, frequent falls, cataracts, anxiety, and depression. PAST MEDICAL HISTORY: Significant for diabetes and also hypertension. PAST SURGICAL HISTORY: Includes a total hysterectomy. She has had gastric stapling. She has had a shoulder arthroscopy, rotator cuff repair, and a right shoulder surgery. ALLERGIES: No known drug allergies. CURRENT MEDICATIONS: Include Flomax 0.4 mg daily, enoxaparin 40 mg daily, Colace 100 mg daily, and citalopram 40 mg daily. She is on Ambien 10 mg q.h.s. She is on Zofran 4 mg q.4 hours p.r.n. nausea and vomiting and Robaxin 750 mg t.i.d. p.r.n. spasm. She is on metformin 1000 mg b.i.d. with meals. She is on HISTORY AND PHYSICAL [id number] JOSE PLATA lorazepam 0.5 mg t.i.d. p.r.n. and lisinopril 40 mg q.h.s. She is on a low-resistant sliding scale with insulin. She is on Lantus 15 units q.h.s. She is on Spencer 7.5/325 as needed for pain and Benadryl 25 mg q.4 hours p.r.n. itching and Tenormin 50 mg q.h.s. HABITS: No alcohol or tobacco use. FAMILY HISTORY: Noncontributory. SOCIAL HISTORY: Once again, the patient hopes to return back home and get back to her prior level of functioning and not be a fall risk. REVIEW OF SYSTEMS: GENERAL: Does complain of weakness. HEENT: She denies cold, cough, or congestion. CARDIOVASCULAR: Denies chest pain. PHYSICAL EXAMINATION: VITAL SIGNS: Stable, afebrile. She is somewhat bradycardic on her current beta asya, but she is asymptomatic with it. GENERAL: A somewhat obese female, in no acute distress, alert upon exam. HEENT: Normocephalic and atraumatic. Mucosa moist. NECK: Supple. No lymphadenopathy. LUNGS: Clear at this time. HEART: Regular rate and rhythm. ABDOMEN: Benign. EXTREMITIES: No clubbing, cyanosis, or edema. NEUROLOGIC: Intact. BACK: On her back, her skin area looks good. No signs of infection. LABORATORY DATA: Her white count 10.4, H&H of 11 and 34.2, and platelet count was 361. Sodium 130, potassium 3.7, BUN and creatinine of 16 and 0.8 and blood sugar is noted to be 98. ASSESSMENT: This is a 75-year-old female patient admitted to rehab with a working diagnosis of status post surgery secondary to L2 through L4 foraminal stenosis and radiculopathy and also acute blood loss anemia: The patient has potential to make improvement. We instituted the following multidisciplinary therapies including to, but not limited to physical, occupational, respiratory, speech, nutritional services, prosthetics and orthotics. Given her complex condition and risk for more complications, rehabilitation services cannot be provided at a low level of care such as a fpc facility. PLAN: 1. Admit to [facility] rehab for intensive inpatient therapy to include the following disciplines: A. Physical therapy to improve gait, all transfer skills and bed mobility to a modified independent level. B. Occupational therapy to improve activities of daily living to a modified independent level. C. Case management to assist with discharge planning and placement options. D. Nutrition to assist with nutritional needs. E. Rehabilitation nursing to assist in monitoring the patient's underlying medical conditions and to assist with any type of bowel or bladder management. 2. The patient's current medications and medical care will be continued. HISTORY AND PHYSICAL [id number] JOSE PLATA 3. The patient will be placed on standard fall precautions. 4. We will watch her blood counts closely. 5. We will go ahead and discuss this patient during care team staff meeting this week. TRANSINT:[id number] Voice Confirmation ID: [id number] DOCUMENT ID: [id number] TAMANNA VIZCAINO MD at 0859 CC: [id number] DICTATION DATE: 06/13/16805 DYE WINCH OPERATOR: 06/13/16 1319 ADM IN [place] [id number] [place] [address]
--- NOTE | 2016-06-16 10:25 | NUR ---
Nutrition Follow Up: Chart reviewed. Pt is eating 42% meal avg on a Diabetic diet with chopped meats. Wt stable. +BM 06/16/16. Labs reviewed - Na low. Meds noted including Megace, Lantus, Metformin, Humalog. Pt with greatly improving po intake. Rec continue current diet. Rec continue appetite stimulant. RD will continue to monitor pt progress.
[2016-06-16 11:09] VITALS: BP 142/63
--- NOTE | 2016-06-16 14:14 | NUR ---
PT. WAS INCONTINENT OF URINE WHILE IN BED THIS MORNING. PT. WAS CLEANED UP AND FRESH CLOTHES AND LINENS WERE PLACED ON HER BED. SHE WENT TO THERAPY AND WORKED REALLY HARD. PT. COMPLAINED OF PAIN AND RECEIVED A NORCO 7.5MG AT 1325. COLACE WAS HELD THIS AM DUE TO LOOSE STOOLS AND PT. REFUSED IT.
[2016-06-16 18:52] VITALS: BP 123/58
--- NOTE | 2016-06-16 19:26 | NUR ---
PT IS SITTING UP IN HER WHEELCHAIR IN HER ROOM WITH HER FAMILY IN VISITING HER. NO DISTRESS FOUND.
--- NOTE | 2016-06-16 20:00 | NUR ---
PT. IN BED WITH HOB UP FOR COMFORT AND LYING ON HER RIGHT SIDE. DAUGHTER PRESENT FOR A VISIT. ASSESSMENT COMPLETED. REMOVED PT'S SCRUB PANTS AND PLACED PT. ON BEDPAN TO URINATE. PT. VOIDED LARGE AMOUT OF CLEAR YELLOW URINE. PT. CLEANED AND MEPILEX DRESSING APPLIED TO COCCYX SCAB FOR PROTECTION. CLEAN NEW BRIEF PLACED AND PT. REPOSITIONED ONTO HER LEFT SIDE. PT. ENCOURAGED TO PULL HERSELF OVER ONTO HER SIDES USING THE SIDERAILS OFTEN SHE CAN TO HELP DECREASE RISK OF SKIN BREAKDOWN. CALL LIGHT WITHIN REACH.
--- NOTE | 2016-06-16 23:05 | NUR ---
PT. IN BED WITH HOB UP FOR COMFORT AND LYING ON HER LEFT SIDE. EYES CLOSED AND RESP. DEEP AND EVEN. SCD'S ON TO BLE'S. CALL LIGHT WITHIN REACH.
--- NOTE | 2016-06-17 01:05 | NUR ---
PT. IN BED WITH HOB UP FOR COMFORT AND CONTINUES TO LIE ON HER LEFT SIDE. EYES CLOSED AND RESP. DEEP AND EVEN. CALL LIGHT WITHIN REACH.
[2016-06-17 07:00] VITALS: BP 135/57
--- NOTE | 2016-06-17 08:05 | NUR ---
PATIENT ALERT TO SELF AND PLACE ONLY. RESTING WELL WHEN BREAKFAST TRAY BROUGHT INTO ROOM. BED ALARM ON. CALL LIGHT WITHIN REACH. PATIENT USING CALL LIGHT FOR NEEDS
--- NOTE | 2016-06-17 10:19 | NUR ---
PATIENT IN REHAB ROOM WORKING WITH PHYSICAL THERAPIST. DENIES ANY PAIN/DISC AT THIS TIME.
--- NOTE | 2016-06-17 12:03 | NUR ---
GLUCOSE LEVEL 195. FOUR UNITS OF SLIDING SCALE INSULIN GIVEN PER ORDER
--- NOTE | 2016-06-17 15:14 | NUR ---
PATIENT GIVEN SHOWER WITH HELP FOR NURSE ASST. PATIENT WASHED FRONT OF SELF. NURSE ASST. HAD TO WASH THE REST.
--- NOTE | 2016-06-17 17:03 | NUR ---
GLUCOSE LEVEL 83. ORANGE JUICE GIVEN
--- NOTE | 2016-06-17 18:26 | NUR ---
RESTING QUIETLY IN BED CALL LIGHT IN REACH
[2016-06-17 19:19] VITALS: BP 145/59
--- NOTE | 2016-06-17 19:20 | NUR ---
PT. IN BED LYING ON HER LEFT SIDE WITH HOB UP FOR COMFORT AND IS VISITING WITH HER DAUGHTER, BAILEY. ASSESSMENT COMPLETED. PT. MORE ALERT AND TALKATIVE TODAY PER DAUGHTER. NO VOICED NEEDS AT THIS TIME. CALL LIGHT WITHIN REACH.
--- NOTE | 2016-06-17 23:24 | NUR ---
PT. IN BED LYING ON HER SIDE WITH EYES CLOSED AND RESP. DEEP AND EVEN. CALL LIGHT WITHIN REACH.
--- NOTE | 2016-06-18 03:18 | NUR ---
PT. IN BED WITH HOB UP FOR COMFORT LYING ON HER RIGHT SIDE. EYES ARE CLOSED AND RESP. EVEN. CALL LIGHT WITHIN REACH.
[2016-06-18 07:00] VITALS: BP 150/65
--- NOTE | 2016-06-18 08:01 | NUR ---
PATIENT ALERT/ORIENT TO SELF AND FAMILY. SITTING UP IN BED TO EAT BREAKFAST. CALL LIGHT WITHIN REACH. DAUGHTER IN ROOM. HELPING PATIENT WITH BREAKFAST
--- NOTE | 2016-06-18 08:40 | NUR ---
PRN NORCO GIVEN FOR BACK PAIN/DISC.
--- NOTE | 2016-06-18 11:50 | NUR ---
GLUCOSE LEVEL 145. NO SLIDING SCALE INSULIN GIVEN PER ORDER
--- NOTE | 2016-06-18 17:29 | NUR ---
GLUCOSE LEVEL 137. NO SLIDING SCALE INSULIN GIVEN
[2016-06-18 19:33] VITALS: BP 141/51
--- NOTE | 2016-06-18 19:50 | NUR ---
PT. IN BED LYING ON HER RIGHT SIDE WITH HOB UP FOR COMFORT. VISITORS PRESENT. ASSESSMENT COMPLETED. SCD'S NOT ON AT THIS TIME AND PT. SAID SHE WILL LET ME KNOW WHEN SHE IS READY TO HAVE THEM PLACED. NO VOICED NEEDS AT THIS TIME AND HER CALL LIGHT IS WITHIN REACH.
--- NOTE | 2016-06-18 21:30 | NUR ---
PT. GIVEN 2%MILK AND MI CRACKERS FOR HER BEDTIME SNACK.
--- NOTE | 2016-06-18 23:14 | NUR ---
PT. IN BED WITH HOB UP FOR COMFORT AND LYING ON HER LEFT SIDE. EYES ARE CLOSED AND RESP. DEEP AND EVEN. CALL LIGHT WITHIN REACH.
--- NOTE | 2016-06-19 03:42 | NUR ---
PT. IN BED WITH HOB UP FOR COMFORT LYING ON HER LEFT SIDE. EYES ARE CLOSED AND RESP. DEEP AND EVEN. CALL LIGHT REMAINS WITHIN REACH.
--- NOTE | 2016-06-19 08:01 | NUR ---
DR.S VIZCAINO INTO SEE PATIENT THIS AM. NO NEW ORDERS RECEIVED
--- NOTE | 2016-06-19 08:03 | NUR ---
DR. Dov VIZCAINO INTO SEE PATIENT. NEW ORDERS RECEIVED
[2016-06-19 08:46] VITALS: BP 138/57
--- NOTE | 2016-06-19 10:17 | NUR ---
PATIENT HELPED WITH AM SHOWER. PATIENT ONLY ABLE TO WASH AND DRY TOP HALF OF HER BODY. NURSE ASST DID REST
--- NOTE | 2016-06-19 10:25 | EC ---
PATIENT:JOSE PLATA DATE OF SERVICE: 06/12/16 SEX: F MEDICAL RECORD: [id number] DATE OF : 38 LOCATION:[place] [address] AGE OF PATIENT: 75 ADMISSION DATE: 06/12/16 REFERRING PHYSICIAN: INTERPRETING PHYSICIAN: JAZIEL COKER MD ECHOCARDIOGRAM REPORT ECHO CHARGES 4 ECHO COMPLETE CLINICAL DIAGNOSIS: L MCA/TIA ASSESS FOR CLOTS ECHOCARDIOGRAPHIC MEASUREMENTS (adult normal given) AC root (d.<3.7cm) 3.5 LV Septum d (<1.2 cm> 1.4 Valve Excursion 1.2 LV Septum (systole) 1.4 Left Atria (s.<4.0cm> 2.8 LVPW d(<1.2cm) 1.4 RV (d.<2.3cm) 3.8 LVPW (sytole) 1.5 LV diastole(<5.6CM) 4.0 MV E-F(>70mm/sec) LV systole 2.8 LVOT Diameter 1.3 MV exc.(>10mm) 1.5 Est.ejection fraction (50-75%) Pericardial Effusion N DOPPLER: LVIT A 96.0 E 70.0 LA RVSP 29 LVOT 139 AOP1/2T Asc. Ao 209 RVOT 104 RA 122 PA AV Gradient Peak 17.41 AV Mean 9.60 AV Area 1.1 MV Gradient Peak 3.81 MV Mean 1.36 MV Area COMMENTS: Fish Filleter: Mekhi NARAYAN Floor Covering Printer:Mekhi Pierce TAPE# PACS DATE OF SERVICE: 06/16/2016 Echocardiogram FINDINGS: 1. Left ventricle chamber size is within normal limits. Left ventricular systolic function is normal. Overall ejection fraction estimated at 55%. 2. Left atrium, right atrium, and right ventricular chamber sizes are within normal limits. 3. Valvular structures: Aortic valve demonstrates mild calcific aortic ECHOCARDIOGRAM REPORT [id number] JOSE PLATA stenosis. Valve area calculates to 1.1 cm-squared. There is a gradient of 17 mm across the valve. The remaining valvular structures have normal structure and motion. 4. Doppler interrogation reveals mild mitral regurgitation, mild tricuspid regurgitation, no other valvular insufficiency or stenosis. Pulmonary systolic pressure is normal estimated at 29 mmHg. 5. No evidence of pericardial effusion or left ventricular thrombus. TRANSINT:[id number] Voice Confirmation ID: [id number] DOCUMENT ID: [id number] JAZIEL COKER MD at 1025 CC: [id number] DICTATION DATE: 06/16/16 1527 DRILLING MANAGER: 06/16/16 1854 ADM IN [facility] [address] [place] [id number]
--- NOTE | 2016-06-19 12:00 | NUR ---
GLUCOSE LEVEL 132. NO SLIDING SCALE INSULIN GIVEN PER ORDER. PATIENT SITTING UP IN A WHEELCHAIR IN ROOM TO EAT LUNCH. FAMILY IN ROOM WITH PATIENT
--- NOTE | 2016-06-19 14:47 | NUR ---
REFERRAL FAXED TO [facility] PER FAMILY REQUEST
--- NOTE | 2016-06-19 15:24 | NUR ---
PRN NORCO GIVEN FOR LOWER BACK PAIN, PER PATIENT REQUEST
--- NOTE | 2016-06-19 17:00 | NUR ---
GLUCOSE LEVEL 157. TWO UNITS OF SLIDING SCALE INSULIN GIVEN
[2016-06-19 18:43] VITALS: BP 148/74
--- NOTE | 2016-06-19 18:48 | NUR ---
PT HAS HAD AN UNEVENTFUL DAY TODAY. STABLE CONDITION OBSERVED. CALL LIGHT IS IN REACH.
--- NOTE | 2016-06-19 19:20 | NUR ---
PATIENT IN BED. DAUGHTER PRESENT AT BEDSIDE. PATIENT HAS NO COMPLAINTS AT THIS TIME.
--- NOTE | 2016-06-19 20:55 | NUR ---
ASSESSMENT AND HS MEDS COMPLETE. PATIENT IS ORIENTED X4 TONIGHT. GAVE PATIENT AMBIEN 10MG PO FOR SLEEP, PER HER REQUEST. DENIES CURRENT NEEDS. TURNED PATIENT TO LEFT SIDELYING POSITION.
--- NOTE | 2016-06-19 22:05 | NUR ---
RESTING QUIETOY IN BED, EYES CLOSED.
--- NOTE | 2016-06-19 22:55 | NUR ---
ASSISTED PATIENT UP TO BR TO URINATE AFTER LARGE URINE AND SMALL LOOSE BM INCONTINENCE IN BRIEF WHICH SHE CONTINUES IMMEDIATELY ON SITTING ON COMMODE. PASSED A LARGE LOOSE BM A SMALL AMOUNT OF URINEE IN COMMODE. WILL RECOMMEND HER COLACE BE HELD IN THE AM DUE TO LOOSE STOOL. CLEANSED PATIENT, APPLIED BUTT PASTE TO SMALL ABRASION OVER COCCYX, AND AFTER APPLYING A FRESH PULL-UP, ASSISTED HER BACK INTO BED INTO A RIGHT SIDELYING POSITION WITH A PILLOW FOR POSITIONING AND ANOTHER BETWEEN LEGS FOR COMFORT. CONTINUES WITH SCD'S TO JESI LE'S.
--- NOTE | 2016-06-20 00:15 | NUR ---
RESTING IN BED ON RIGHT SIDE SINCE SHE WAS UP TO BR AROUND 2300.
--- NOTE | 2016-06-20 02:05 | NUR ---
REMIANS IN BED ON RIGHT SIDE, EYES CLOSED. APPEARS COMFORTABLE.
--- NOTE | 2016-06-20 04:30 | NUR ---
RESTING QUIETLY IN BED, AFTER ASSISTING HER UP TO BR COMMODE TO URINATE AND COMPLETE LOOSE BM THAT STARTED WITH SMALL INCONTINENCE IN BRIEF WHILE IN BED. CHANGED PINK BED PAD DUE TO SUSPECT URINE STAIN (DRY--MAY BE OLD STAIN). APPLIED FRESH PULL-UP BRIEF AND ASSISTED PATIENT BACK INTO BED AND TURNED HER TO LEFT SIDELYING POSITION FOR PRESSURE RELIEF.
--- NOTE | 2016-06-20 06:00 | NUR ---
FSBS 90. DENIES NEEDS. TOOK SCHEDULED PO MEDS.
--- NOTE | 2016-06-20 08:00 | NUR ---
SHIFT ASSMT COMPLETED.
[2016-06-20 09:09] VITALS: BP 113/50
--- NOTE | 2016-06-20 16:00 | NUR ---
CLIPS REMOVED FROM BACK ORDERED.STERI STRIPS APPLIED.SLIGHT REDNESS AROUND EDGES AND SOME SCABBING TO CENTER OF INCISION.JORDYN WELL.
--- NOTE | 2016-06-20 19:15 | NUR ---
PATIENT IN BED WITH A ROOMFUL OF FAMILY VISITORS. TOLD HER I WILL RETURN LATER.
[2016-06-20 20:49] VITALS: BP 120/51
--- NOTE | 2016-06-20 21:00 | NUR ---
ASSESSMENT AND HS MEDS COMPLETE. FSBS 215. GAVE PATIENT SCHEDULED LANTUS 15UNIT SC IN RUQ. ALSO GAVE HER 4 UNITS SLIDING SCALE HUMALOG INSULIN SC IN RIGHT UPPER ARM. DENIES PAIN OR OTHER DISTRESS. TURNED PATIENT TO LEFT SIDELYING POSITION. DAUGHTER DEPARTING FOR HOME.
--- NOTE | 2016-06-20 22:15 | NUR ---
RESTING IN BED, EYES CLOSED. CONTINUES IN LEFT SIDELYING POSITION. APPEARS COMFORTABLE.
--- NOTE | 2016-06-21 00:05 | NUR ---
RESTING IN BED ON LEFT SIDE. APPEARS COMFORTABLE.
--- NOTE | 2016-06-21 02:45 | NUR ---
CONTINUES IN BED, RESTING ON LEFT SIDE APPEARS COMFORTABLE.
--- NOTE | 2016-06-21 03:45 | NUR ---
ASSISTED PATIENT UP TO BR TO URINATE AND THEN BACK TO BED. PATIENT HAS BEEN CONTINENT TONIGHT SO FAR. ON RETURN TO BED C/O PAIN LEVEL OF 4/10 IN LOW BACK AND RIGHT HIP. GAVE HER NORCO 7.5/325 X1 TAB PO AND TURNED HER TO RIGHT SIDELYING POSITION WITH HOB UP 15 DEGREES FOR COMFORT.
--- NOTE | 2016-06-21 04:45 | NUR ---
RESTING IN BED ON RIGHT SIDE SINCE SHE WAS LAST TURNED @ 0345. RESPIRATION ARE UNLABORED.
--- NOTE | 2016-06-21 05:50 | NUR ---
DROWSY BUT STILL AWAKE AFTER RECENTLY TAKING SCHEDULED PO MEDS. FSBS WAS 108.
--- NOTE | 2016-06-21 07:02 | NUR ---
RESTING QUIETLY IN BED CALL LIGHT IN REACH
[2016-06-21 07:27] LABS: BASOPHILS 0.1 % (0-2); EOSINOPHILS 1.9 % (0-7); HEMATOCRIT 32.9 % (36.0-48.0); HEMOGLOBIN 10.9 g/dL (12-16); IMMATURE GRANULOCYTES 0.8 % (0-5); LYMPHOCYTES 33.8 % (15-50); MCH 30.8 pg (26.0-34.0); MCHC 33.1 g/dL (31.0-37.0); MCV 92.9 fL (80.0-100.0); MONOCYTES 8.1 % (2-11); NEUTROPHILS 55.3 % (40-80); PLATELET COUNT 372 10x3/uL (130-400); RBC 3.54 10x6/uL (4.00-5.40); RDW 13.2 % (11.5-14.5); WBC 8.6 10x3/uL (4.8-10.8)
[2016-06-21 07:44] LABS: ANION GAP 8.8 mmol/L (8-16); CALCIUM 8.5 mg/dL (8.5-10.1); CARBON DIOXIDE 29.2 mmol/L (21.0-32.0)
--- NOTE | 2016-06-21 08:22 | NUR ---
PT RESTING IN BED WITH EYES OPEN CALL LIGHT IN REACH NO PROBLEMS WILL MONITER
--- NOTE | 2016-06-21 13:26 | NUR ---
Nutrition Follow Up: Pt reported that her appetite is fine. Pt is eating 76% meal avg on a diabetic diet with chopped meats. +BM 06/20/16. Labs reviewed - Na low. Meds noted inlcuding Metformin, Humalog. Pt with good po intake. Rec continue current diet. RD will continue to monitor pt progress.
--- NOTE | 2016-06-21 14:57 | NUR ---
CARE TEAM MEETING: SISTER ATTENDED MEETING. REFERRAL TO [facility] HAS BEEN MADE FOR POSSIBLE ADMISSION. WILL CONTINUE TO FOLLOW WITH PATIENT UNTIL DISCHARGED
[2016-06-21 18:59] VITALS: BP 118/55
--- NOTE | 2016-06-21 19:10 | NUR ---
IN BE, DAUGHTER AT BEDSIDE. PATINET DENIES NEEDS.
--- NOTE | 2016-06-21 20:30 | NUR ---
FSBS 153. REFUSED S/S INSULIN. RECEIVED SCHEDULED LANTUS 15 UNITS SC IN RUQ. BP LISINOPRIL AND ATENOLOL HELD FOR BP 118/55. GAVE HER NORCO 7.5/325 X1 TAB PLUS ROBAXIN 750MG PO FOR ELIAS WITH DRAMPING IN LOW BACK AND RIGHT HIP.
--- NOTE | 2016-06-21 21:00 | NUR ---
DAUGHTER RECENTLY LEFT FOR HOME. PATIENT REMAINS AWAKE. DENIES NEEDS.
--- NOTE | 2016-06-21 22:00 | NUR ---
RESTING IN BED ON RIGHT SIDE, EYES CLOSED. NO DISTRESS NOTED.
--- NOTE | 2016-06-22 | NUR ---
RESTING QUIETLY IN BED ON RIGHT SIDE.
--- NOTE | 2016-06-22 02:05 | NUR ---
CONTINUES IN BED ON RIGHT SIDE. APPEARS COMFORTABLE.
--- NOTE | 2016-06-22 04:05 | NUR ---
RESTING IN BED ON LEFT SIDE. RESPIRING QUIETLY.
--- NOTE | 2016-06-22 05:49 | NUR ---
FSBS 82. GAVE PATIENT 4 OZS APPLE JUICE TO SUSTAIN HER BLOOD SUGAR UNTIL BREAKFAST. TOOK SCHEDULED PO MEDS. ASSISTED PATIENT UP TO BR TO URINATE AND BACK TO BED.
--- NOTE | 2016-06-22 07:53 | NUR ---
SITTING UP IN BED EATING BREAKFAST CALL LIGHT IN REACH
[2016-06-22 08:00] VITALS: BP 123/83
--- NOTE | 2016-06-22 08:23 | NUR ---
PRN MUSCLE RELAXANT GIVEN PER PATIENT REQUEST. DR. Dov LYN INTO SEE PATIENT NEW ORDERS RECEIVED. PATIENT IS ALERT/ORIENT X3. HELPED INTO BATHROOM WITH MIN TO MOD ASST. NEEDED HELP WITH [employer] AND PULLING UP PANTS
--- NOTE | 2016-06-22 10:38 | NUR ---
PATIENT WORKING WITH OCCUPATIONAL THERAPIST IN REHAB ROOM. STATES RELIEF FROM [facility].
--- NOTE | 2016-06-22 12:45 | NUR ---
PATIENT SITTING UP FOR LUNCH. SON IN VISITING WITH PATIENT. CALL LIGHT WITHIN REACH
--- NOTE | 2016-06-22 17:55 | NUR ---
GLUCOSE LEVEL 121. NO SLIDING SCALE INSULIN GIVEN. PATIENT HAS FAMILY IN ROOM. VOICES NO NEEDS AT THIS TIME
--- NOTE | 2016-06-22 19:48 | NUR ---
PT RECEIVED IN BED WITH EYES CLOSED AND CHEST RISING. AROUSED UPON ENTRY. NO NEEDS OR COMPLAINTS OF PAIN NOTED AT THIS TIME. CALL LIGHT IN REACH. WILL CONTINUE TO OBSERVE.
[2016-06-22 20:08] VITALS: BP 129/60
--- NOTE | 2016-06-22 23:03 | NUR ---
PT IN BED WITH EYES CLOSED AND CHEST RISING. NO SIGN/SYMPTOMS OF DISTRESS NOTED. CALL LIGHT IN REACH. WILL CONTINUE TO OBSERVE.
--- NOTE | 2016-06-23 01:53 | NUR ---
PT IN BED WITH EYES CLOSED AND CHEST RISING. AROUND 0000 PT REQUEST ASSISTANCE TO BATHROOM. PT INCONTINENT OF BOWEL WITH UNFORMED LOOSE STOOL IN BRIEF ONLY. NEW BRIEF PROVIDED. PT REMINDED TO CLEAN SELF FROM FRONT TO BACK WHEN CLEANING PERIAREA. BUTT PASTE APPLIED. NO OTHER NEEDS MADE KNOWN. CALL LIGHT IN REACH. WILL CONTINUE TO OBSERVE.
--- NOTE | 2016-06-23 04:17 | NUR ---
PT IN BED WITH EYES CLOSED AND CHEST RISING AT THIS TIME. PT REQUEST ASSISTANCE TO TOILET WITH URINARY OUTPUT ONLY NOTED AND ASSISTED TO BED WITH MODERATE ASSIST. NO OTHER NEEDS MADE KNOWN AT THIS TIME. CALL LIGHT IN REACH. WILL CONTINUE TO OBSERVE.
[2016-06-23 06:39] LABS: BASOPHILS 0.2 % (0-2); EOSINOPHILS 1.9 % (0-7); HEMATOCRIT 33.2 % (36.0-48.0); IMMATURE GRANULOCYTES 0.4 % (0-5); LYMPHOCYTES 38.7 % (15-50); MCHC 33.1 g/dL (31.0-37.0); MCV 93.5 fL (80.0-100.0); MEAN PLATELET VOLUME 10.1 fL (7.4-10.4); MONOCYTES 7.5 % (2-11); NEUTROPHILS 51.3 % (40-80); PLATELET COUNT 391 10x3/uL (130-400); RBC 3.55 10x6/uL (4.00-5.40); RDW 13.5 % (11.5-14.5); WBC 8.3 10x3/uL (4.8-10.8)
--- NOTE | 2016-06-23 06:53 | NUR ---
PT IN BED WITH EYES CLOSED AND CHEST RISING. RECEIVED AM MEDICATIONS PER APR. HUMALOG HELD PER SLIDING SCALE. NO CONCERNS MADE KNOWN. CALL LIGHT IN REACH.
[2016-06-23 06:56] LABS: ANION GAP 13.3 mmol/L (8-16); CALCIUM 8.9 mg/dL (8.5-10.1); CARBON DIOXIDE 26.8 mmol/L (21.0-32.0); CREATININE - SERUM 0.9 mg/dL (0.6-1.3); POTASSIUM - SERUM 5.1 mmol/L (3.5-5.1)
[2016-06-23 08:47] VITALS: BP 130/74
--- NOTE | 2016-06-23 14:42 | NUR ---
patient has been accepted to [facility] and will discharge there 06/28/16 via facility van
[2016-06-23 18:53] VITALS: BP 128/57
--- NOTE | 2016-06-23 19:02 | NUR ---
PT HAS HAD AN UNEVENTFUL DAY TODAY. PT RECEIVED A PAIN PILL AND MUSCLE RELAXER TODAY DUE TO ASKING FOR IT. NO CHANGES IN CONDITION.
--- NOTE | 2016-06-23 19:50 | NUR ---
PT. IN BED WITH HOB UP FOR COMFORT AND IS WATCHING TV. ASSESSMENT COMPLETED. PT. REQUESTING REGULAR SALTINE CRACKERS. CALL LIGHT WITHIN REACH.
--- NOTE | 2016-06-23 23:08 | NUR ---
PT. IN BED WITH HOB UP FOR COMFORT LYING ON HER RIGHT SIDE. EYES ARE CLOSED AND RESP. DEEP AND EVEN. CALL LIGHT WITHIN REACH.
--- NOTE | 2016-06-24 03:03 | NUR ---
PT. UP TO THE BR WITH ASSISTANCE TO URINATE. BACK TO BED VIA W/C AND POSITIONED TO COMFORT ON HER LEFT SIDE WITH PILLOW TO BACK FOR SUPPORT. NO VOICED NEEDS AND HER CALL LIGHT IS WITHIN REACH.
[2016-06-24 07:00] VITALS: BP 135/56
--- NOTE | 2016-06-24 07:00 | NUR ---
PT WAS RECEIVED IN BED AWAKE AND ORIENTED X 3 AT THE BEGINNING OF THIS SHIFT. SHE IS A MIN ASSIST TO THE WC AND TO THE BATHROOM. NO VERBAL COMPLAINTS OR NEEDS AT THIS TIME. WILL BE MONITORING HER AND ASSISTING PRN WITH ADL'S. CALL LIGHT IS IN HER REACH. STABLE CONDITION OBSERVED.
--- NOTE | 2016-06-24 18:26 | NUR ---
PT HAD AN UNEVENTFUL DAY TODAY. SHE DID AMBULATE TO THE BATHROOM WITH ASSIST FROM NURSING STAFF. NO COMPLAINTS OF ANYKIND. NO SIGNS OF ANY DISCOMFORT.
[2016-06-24 19:00] VITALS: BP 102/60
--- NOTE | 2016-06-24 21:25 | NUR ---
PT HS MEDS ADMINISTERED. PT DENIES NEEDS AT THIS TIME. BED LOW. CL IN REACH.
--- NOTE | 2016-06-24 23:15 | NUR ---
PT RESTING, EYES CLOSED. BED LOW. CL IN REACH.
--- NOTE | 2016-06-25 01:25 | NUR ---
PT ASSISTED TO BR. PT BACK IN BED AND DENIES NEEDS. BED LOW. CL IN REACH.
--- NOTE | 2016-06-25 03:17 | NUR ---
PT RESTING, EYES CLOSED. BED LOW. CL IN REACH.
--- NOTE | 2016-06-25 07:00 | NUR ---
PT WAS RECEIVED AT THE BEGINNING OF THIS SHIFT IN BED AWAKE AND ORIENTED X 3. NO SIGNS OF ANY DISCOMFORT OR DISTRESS. CALL LIGHT IS IN HER REACH. WILL BE MONITORING HER AND ASSISTING PRN WITH ADL'S. BREATHING IS EASY AND UNLABORED. 02 PER NC GOING AT 2L/MIN.
--- NOTE | 2016-06-25 19:03 | NUR ---
PT HAS HAD AN UNEVENTFUL DAY TODAY. SHE DID REFUSE HER SHOWER TODAY. SHE HAD COMPANY ON AND OFF TODAY ALL DAY. PT DID REQUEST A PAIN PILL AT 3:55 AND RECEIVED A NORCO 7.5MG AT THAT TIME.
--- NOTE | 2016-06-25 19:15 | NUR ---
PT. IN BED WITH HOB UP FOR COMFORT WATCHING TV. NO VOICED NEEDS AT THIS TIME BUT WOULD LIKE HER AMBIEN AND ROBAXIN WITH HER NIGHT TIME MEDS. ASSESSMENT COMPLETED. CALL LIGHT WITHIN REACH.
[2016-06-25 20:00] VITALS: BP 120/57
--- NOTE | 2016-06-25 23:05 | NUR ---
PT. IN BED WITH HOB UP FOR COMFORT AND IS LYING ON HER RIGHT SIDE. PT. AWAKENS EASILY UPON MY ENTERING ROOM AND ASSISTED PT. TO BR TO URINATE. PT. BACK TO BED AND WANTS TO SIT UP AND EAT HER PEANUT BUTTER/JELLY SANDWICH. CALL LIGHT WITHIN REACH IF SHE NEEDS HELP.
--- NOTE | 2016-06-26 03:07 | NUR ---
PT. IN BED LYING ON HER LEFT SIDE WITH EYES CLOSED AND RESP. EVEN. CALL LIGHT WITHIN REACH.
[2016-06-26 07:24] LABS: BASOPHILS 0.3 % (0-2); EOSINOPHILS 3.2 % (0-7); HEMATOCRIT 31.3 % (36.0-48.0); HEMOGLOBIN 10.4 g/dL (12-16); IMMATURE GRANULOCYTES 0.3 % (0-5); MCH 30.8 pg (26.0-34.0); MCHC 33.2 g/dL (31.0-37.0); MCV 92.6 fL (80.0-100.0); MEAN PLATELET VOLUME 10.1 fL (7.4-10.4); MONOCYTES 8.3 % (2-11); NEUTROPHILS 49.9 % (40-80); RBC 3.38 10x6/uL (4.00-5.40); RDW 13.4 % (11.5-14.5); WBC 6.9 10x3/uL (4.8-10.8)
[2016-06-26 07:26] LABS: PLATELET COUNT 298 10x3/uL (130-400)
[2016-06-26 08:00] LABS: ANION GAP 12.9 mmol/L (8-16); CALCIUM 8.6 mg/dL (8.5-10.1); CARBON DIOXIDE 25.5 mmol/L (21.0-32.0); CREATININE - SERUM 0.8 mg/dL (0.6-1.3); POTASSIUM - SERUM 4.4 mmol/L (3.5-5.1)
--- NOTE | 2016-06-26 09:15 | NUR ---
PRN PAIN MEDICATION GIVEN FOR LOWER BACK PAIN. DR. Dov VIZCAINO INTO SEE PATIENT. NEW ORDERS RECEIVED. PATIENT IS ALERT/ORIENT X 4. HELPED INTO BATHROOM USING WHEELED WALKER AND STAND BY ASST
--- NOTE | 2016-06-26 11:30 | NUR ---
GLUCOSE LEVEL 98, NO SLIDING SCALE INSULIN GIVEN.
--- NOTE | 2016-06-26 13:30 | NUR ---
PATIENT DOWN IN REHAB ROOM. WORKING WITH PHYSICAL THERAPIST. DENIES ANY PAIN/DISC AT THIS TIME
--- NOTE | 2016-06-26 17:30 | NUR ---
PRN PAIN MEDICATION GIVEN FOR LOWER BACK PAIN PER PATIENT REQUEST. GLUCOSE LEVEL 143. NO SLIDING SCALE INSULIN GIVEN
--- NOTE | 2016-06-26 18:18 | NUR ---
EATING SUPPER CALL LIGHT IN REACH
[2016-06-26 19:18] VITALS: BP 124/64
--- NOTE | 2016-06-26 21:40 | NUR ---
PT REQ AND REC'D PRN ROBAXIN WITH HS MEDS AT THIS TIME. PT DENEIS FURTHER NEEDS. WCTM. BED LOW. CLIN REACH.
--- NOTE | 2016-06-26 23:52 | NUR ---
PT RESTING, EYES CLOSED. BED LOW. CL IN REACH.
--- NOTE | 2016-06-27 07:00 | NUR ---
PT WAS RECEIVED AT THE BEGINNING OF THIS SHIFT IN BED AWAKE AND ORIENTED X 3. DAUGHTER JUST ARRIVED AND VISITING HER. PT. IS HELPED UP OUT OF BED AND TO THE BATHROOM. VITAL SIGNS; TEMP. 97.7, PULSE 68, RESP. 16, B/P 113/57, 02SAT. 92% ON ROOMAIR. WILL BE MONITORING HER THROUGHOUT THIS SHIFT AND ASSISTING PRN WITH ADL'S.
[2016-06-27 09:44] VITALS: BP 113/57
--- NOTE | 2016-06-27 13:21 | NUR ---
PT REQUESTED PAIN MEDICATION AT 0730 AND RECEIVED A NORCO 7.5MG. SHE THEN REQUESTED AN ATIVAN AT 8AM AND RECEIVED 0.5MG AT 0800. PT GOT A SHOWER BY 0T.
--- NOTE | 2016-06-27 13:34 | NUR ---
Nutrition Follow Up: Pt reported her appetite is okay. She is eating 71% meal avg on a diabetic diet with chopped meats. +BM 06/25/16. No new wt since admit. Labs reviewed. Meds noted including Colace, Lantus, Metformin, Humalog. Pt with good po intake. Rec continue current diet. RD following.
--- NOTE | 2016-06-27 18:38 | NUR ---
PT ASKED FOR A PAIN PILL AROUND 6:30PM AND RECEIVED A NORCO 7.5MG AT THAT TIME. RESTING IN BED WATCHING TV.
[2016-06-27 19:12] VITALS: BP 126/76
--- NOTE | 2016-06-27 19:20 | NUR ---
PM ROUNDS MADE, PT WATCHING TV, INFORMED PT THAT I WILL BE BACK SHORTLY TO DO ASSESSMENT, PT VERBALIZES UNDERSTANDING, DENIES NEEDS AT THIS TIME
--- NOTE | 2016-06-27 20:00 | NUR ---
ASSESSMENT PER FLOW SHEET, PT REPORTS FLATUS, BM YESTERDAY, AND VOIDING WITH NO DIFFICULTY, PT DENIES PAIN OR NEEDS AT THIS TIME
--- NOTE | 2016-06-27 20:35 | NUR ---
PT WATCHING TV, FSBS OBTAINED, INFORMED PT THAT I WILL BE BACK WITH MEDS AND SNACK, PT REQUESTS REGULAR CRACKERS, REPORTS NOT LIKING MI CRACKERS
--- NOTE | 2016-06-27 21:35 | NUR ---
ADM 2100 MEDS, SEE EMAR, SNACK PROVIDED, PT DENIES FURTHER NEEDS OR PAIN
--- NOTE | 2016-06-27 22:27 | NUR ---
PT RESTING WITH EYES CLOSED, RESP QUIET, NO DISTRESS NOTED, LEFT UNDISTURBED AT THIS TIME
--- NOTE | 2016-06-28 00:38 | NUR ---
PT RESTING WITH EYES CLOSED, RESP QUIET, NO DISTRESS NOTED, LEFT UNDISTURBED AT THIS TIME
--- NOTE | 2016-06-28 01:15 | NUR ---
PT UP TO WC, PT TO BR, PT VOIDED BY SELF WITH NO DIFICULTY, PT BACK TO WC, THEN BACK TO BED, PT DENIES FURTHER NEEDS OR PAIN
--- NOTE | 2016-06-28 02:07 | NUR ---
PT RESTING WITH EYES CLOSED, RESP QUIET, NO DISTRESS NOTED, LEFT UNDISTURBED AT THIS TIME
--- NOTE | 2016-06-28 04:34 | NUR ---
PT MARINE STEWARD LIGHT, REQUESTED MUSCLE RELAXER, ADM ROBAXIN PO PER MD ORDERS, SEE EMAR, PT UP TO BR VIA WC WITH ASSISTANCE, PT VOIDED BY SELF WITH NO DIFFICULTY, PT BACK TO BED, DENIES FURTHER NEEDS
--- NOTE | 2016-06-28 06:38 | NUR ---
PT AWAKE, FSBS, ADM 0600 MED PER MD ORDERS, SEE EMAR, PT DENIES FURTHER NEEDS
--- NOTE | 2016-06-28 07:18 | NUR ---
SHIFT REPORT TO DAY SHIFT
--- NOTE | 2016-06-28 08:05 | NUR ---
PATIENT SITTING UP AT BEDSIDE FOR BREAKFAST. ALERT/ORIENT X4. CALL LIGHT WITHIN REACH. VOICES NO NEEDS. PATIENT TO BE DISCHARGED TO HOME TODAY. WAITING FOR D/C ORDERS
[2016-06-28 08:27] VITALS: BP 116/53
--- NOTE | 2016-06-28 08:30 | NUR ---
SITTING UP ON SIDE OF BED.ASSISTED TO BATHROOM.WILL PULL CORD WHEN FINISHED.
--- NOTE | 2016-06-28 09:52 | NUR ---
PATIENT DISCHRGING HOME TODAY WITH FAMILY. [facility] WILL FOLLOW WITH PATIENT AND PROVIDE THEREAPY AT HOME.NO NEW DME NEEDED AT THIS TIME. PATIENT HAS WALKER , WHEELCHAIR . APPOINTMENTS: DR. RASMUSSEN 07/05/16 @ 3:00, DR. JONES JULIAN 07/14/16 @ 9:30. PATIENT CHOICE FORM FOR HOME HEALTH AND [facility] FORM SIGNED, EXPLAINED AND FILED IN CHART. ORDERS FAXED WITH CONFORMATION RECIEVED
--- NOTE | 2016-06-28 10:47 | NUR ---
DR Agustín VIZCAINO HERE TO SEE PATIENT. DISCHARGE ORDERS RECEIVED
--- NOTE | 2016-06-28 11:30 | NUR ---
GLUCOSE LEVEL 113. NO SLDING SCALE INSULIN GIVEN.
--- NOTE | 2016-06-28 12:00 | NUR ---
PATIENTS SON HERE TO TAKE PATIENT HOME. DISCHARGE ORDERS GONE OVER WITH PATIENT. PATIENT STATES SHE HAS ALL MEDICATIONS ORDERED AT HOME WITH THE EXCEPTION OF NORCO. PRESCRIPTION FOR NORCO GIVEN,
== END 2016-06-28 13:25 | disposition home health service (06) | DRG 552 ==
LOC: D.REHAB 15:56
PROVIDERS: Psychiatry & Neurology Neurology; ADMIT Emergency Medicine
DX: M48.06 Spinal stenosis, lumbar region (principal); D62 Acute posthemorrhagic anemia; E87.1 Hypo-osmolality and hyponatremia; M54.16 Radiculopathy, lumbar region; M51.36 Other intervertebral disc degeneration, lumbar region; N99.89 Other postprocedural complications and disorders of genitourinary system; R53.1 Weakness; R26.9 Unspecified abnormalities of gait and mobility; M41.9 Scoliosis, unspecified; G62.9 Polyneuropathy, unspecified; R33.9 Retention of urine, unspecified; Z91.81 History of falling; E11.9 Type 2 diabetes mellitus without complications; I10 Essential (primary) hypertension

== ENCOUNTER → 2016-07-14 08:44 | Outpatient (CLI) | payer MEDICARE ==
[2016-06-13 13:18] VITALS: BMI 30.1
== END | disposition home or self-care (01) ==
LOC: D.RAD 08:30
DX: Z48.811 Encounter for surgical aftercare following surgery on the nervous system (principal)

== ENCOUNTER 2016-07-31 13:05 | Observation (INO) | payer MEDICARE ==
[~2016-07-31] VITALS: Ht 160 cm; Wt 66.7 kg
[~2016-07-31 13:05] MED LIST changes: -NORCO 7.5/325 T1 TA1 PO
[2016-07-31 15:27] LABS: BASOPHILS 0.1 % (0-2); EOSINOPHILS 0.2 % (0-7); HEMATOCRIT 36.7 % (36.0-48.0); HEMOGLOBIN 11.8 g/dL (12-16); IMMATURE GRANULOCYTES 0.1 % (0-5); LYMPHOCYTES 10.1 % (15-50); MCH 31.3 pg (26.0-34.0); MCHC 32.2 g/dL (31.0-37.0); MCV 97.3 fL (80.0-100.0); MEAN PLATELET VOLUME 10.9 fL (7.4-10.4); MONOCYTES 4.6 % (2-11); NEUTROPHILS 84.9 % (40-80); PLATELET COUNT 294 10x3/uL (130-400); RBC 3.77 10x6/uL (4.00-5.40); WBC 8.3 10x3/uL (4.8-10.8)
[2016-07-31 16:19] LABS: ALBUMIN 3.1 g/dL (3.4-5.0); ANION GAP 17.3 mmol/L (8-16); BILIRUBIN - TOTAL 0.69 mg/dL (0.2-1.3); CALCIUM 9.1 mg/dL (8.5-10.1); CARBON DIOXIDE 24.4 mmol/L (21.0-32.0); PROTEIN - SERUM 7.1 g/dL (6.4-8.2)
[2016-07-31 16:20] LABS: POTASSIUM - SERUM 4.7 mmol/L (3.5-5.1)
[2016-07-31 20:00] VITALS: BP 138/74
--- NOTE | 2016-07-31 20:03 | NUR ---
REPORT FROM PALMIRA CUEVA.
--- NOTE | 2016-07-31 20:30 | NUR ---
ARRIVED TO FLOOR FROM ER VIA STRETCER, ACCOMPANIED BY HOSPITAL STAFF AND DAUGHTER. ORIENTED TO UNIT, CALL LIGHT IN REACH. LEFT FOREARM INFUSING NS @ 75. WILL CONTINUE TO MONITOR. SEE NURSE ASSESSMENT.
--- NOTE | 2016-07-31 21:00 | NUR ---
RADHA ARNETT PAGED FOR NIGHT MEDS, AWAITING CALL BACK.
--- NOTE | 2016-07-31 23:15 | NUR ---
IMPACTION REMOVED, MORPHINE 4MG IVP FOR PAIN. SOAP SUDS ENEMA ADMINISTERED. AWAITING MORE STOOLS. CALL LIGHT IN REACH. WILL CONTINUE TO MONTIOR.
[2016-08-01] VITALS: BP 104/44
[2016-08-01 01:05] VITALS: BP 138/74; BMI 26.1
--- NOTE | 2016-08-01 06:45 | NUR ---
NO CHANGES FROM PREVIOUS ASSESSMENT, CALL LIGHT IN REACH. WILL CONTINUE WITH PLAN OF CARE.
[2016-08-01 08:00] VITALS: BP 106/64
--- NOTE | 2016-08-01 08:48 | NUR ---
PATIENT IS AWAKE AND ALERT, SITTING UP IN BED, HOB UP 45 DEGREES. SHE HAS C/O HER RIGHT LEG AND HIP HURTING AND RATES THIS PAIN AN 8. MS GIVEN TO THE LEFT FOREARM IV. IVF ARE INFUSING PER ORDERS. SHE STATES THAT SHE FEELS 100% BETTER, IN REGARDS TO CONSTIPATION. SHE STATES THAT THE DIGITAL REMOVAL OF THE IMPACTION WAS PAINFUL BUT ALLOWED HER TO FURTHER PASS THE STOOL. DAUGHTER AND SON AT THE BEDSIDE, ALL ARE EXPECTING HER TO BE DISCHARGED HOME TODAY. SHE LIVES ALONE AND IS ABLE TO AMBULATE WITHOUT ASSISTIVE DEVICE THERE PER HER STATEMENT. CALL LIGHT WITHIN HER REACH WITH VERBAL INSTRUCTIONS TO CALL FOR ASSISTANCE TO THE RESTROOM. SHE VOICED UNDERSTANDING.
[2016-08-01 10:04] VITALS: Ht 160 cm; Wt 66.7 kg
--- NOTE | 2016-08-01 10:20 | NUR ---
ASSISTED PATIENT TO THE RESTROOM. SHE USED HER CANE, STAND BY ASSISTANCE WITH IV TUBINE AND POLE NAVIGATION GIVEN.
--- NOTE | 2016-08-01 10:45 | NUR ---
PATIENT RESTING WITH EYES CLOSED.
[2016-08-01] MEDS ORDERED: MIRALAX17 GM PO ×2 (13:03→14:10)
[2016-08-01 13:26] VITALS: BP 108/57
--- NOTE | 2016-08-01 15:40 | NUR ---
REVIEWED PATIENT'S DISCHARGE INFORMATION. DISCUSSED HER NEW PRESCRIPTION FOR MIRALAX. SHE VOICED UNDERSTANDING OF IT'S PURPOSE. DISCUSSED HOUSECALLS. SHE STATES THAT SHE WILL ANSWER THE DOOR FOR THEM. TWIN SISTER AT THE BEDSIDE WILL BE DRIVING HER HOME TODAY.
== END 2016-08-01 16:20 | disposition home or self-care (01) ==
LOC: D.ER 13:05 → D.M2 18:39 → OBSVTIME 18:39 → D.M2 08-01 16:20
PROVIDERS: Emergency Medicine; ADMIT Family Medicine Adult Medicine
DX: K59.00 Constipation, unspecified (principal); I10 Essential (primary) hypertension; E11.9 Type 2 diabetes mellitus without complications; F32.9 Major depressive disorder, single episode, unspecified; F41.9 Anxiety disorder, unspecified; M54.9 Dorsalgia, unspecified

== ENCOUNTER → 2016-08-25 09:14 | Outpatient (CLI) | payer MEDICARE ==
[2016-08-01 10:04] VITALS: BMI 26.0
[~2016-08-25 09:14] MED LIST changes: +MIRALAX17 GM PO
== END | disposition home or self-care (01) ==
LOC: D.RAD 08:00
DX: Z48.811 Encounter for surgical aftercare following surgery on the nervous system (principal)

== ENCOUNTER → 2016-09-08 16:12 | Outpatient (CLI) | payer MEDICARE ==
[2016-08-01 10:04] VITALS: BMI 26.0
== END | disposition home or self-care (01) ==
LOC: D.US 16:12
DX: M79.89 Other specified soft tissue disorders (principal)